=== PATIENT | female | born 1960 | race Caucasian/White ===

== ENCOUNTER 2017-05-03 21:56 | Inpatient (IN) | payer OTHER ==
[~2017-05-03] VITALS: Ht 162.6 cm; Wt 85.4 kg
[2017-05-03] MEDS ORDERED: SODIUM CHLORIDE 0.9% 1L BAG IV* STA (22:24)
[2017-05-03] MEDS ORDERED: ONDANSETRON 4 MG INJ IV STA (22:24)
[2017-05-03] MEDS ORDERED: ACETAMINOPHEN 325 MG TAB PO STA (22:24)
[2017-05-03] MEDS ORDERED: morphine 4 MG/ML VIAL IV STA (22:24)
[2017-05-03] MEDS ORDERED: ATOR10TA65 PO (23:19)
[2017-05-03] MEDS ORDERED: LOSA50TA6 PO (23:20)
[2017-05-03] MEDS ORDERED: METF500T4 PO (23:20)
[2017-05-03] MEDS ORDERED: METO-335 PO (23:20)
[2017-05-03] MEDS ORDERED: ALBU90AE INHALATION (23:21)
--- NOTE | 2017-05-03 23:22 | RADRPT ---
PROCEDURE: Right upper quadrant abdominal ultrasound. CLINICAL INDICATION: Abdominal pain TECHNIQUE: Gilbert scale and color doppler ultrasound images of the right upper quadrant of the abdom en. COMPARISON: None FINDINGS: Pancreas: Visualized portions appear of normal echogenicity without focal lesions. Liver: Morphology: The right lobe of the liver is elongated measuring up to 17.9 cm which may reflect Ried el's lobe configuration. Contour:Normal, no evidence of nodularity. Echogenicity: Mildly increased Focal lesions:None. Main portal vein: Patent with hepatopetal flow. Biliary System: Gallbladder wall: Mild gallbladder wall thickening appears to be due to contraction. Gallstones: None. Intrahepatic bile ducts: Normal caliber. Common bile duct diameter (mm): 4.3 Kidneys: Right length (cm) : 10.4 Right cortical thickness: Normal. Echogenicity: Normal. Hydronephrosis: None. Renal calculi: Possible 3 mm nonobstructive calculus of the right kidney. Focal lesions: None. Free fluid/ascites: None. Abdominal aorta: Not visualized by the border measurer and cutter. Other findings: None. IMPRESSION: Mild gallbladder wall thickening appears to be secondary to contraction. No gallstones are seen. Normal caliber intrahepatic and extrahepatic biliary system. Possible 3 mm nonobstructive calculus of the right kidney. Mildly increased echogenicity of the liver suggestive of hepatic steatosis. RPTAT: AADD .Tucker Alonzo MD, Date Time Electronically viewed and signed by .Tucker Alonzo MD, on 05/03/2017 23:22 .B/
--- NOTE | 2017-05-03 23:23 | RADRPT ---
PROCEDURE: CHEST - 1 VIEW CLINICAL INDICATION: 57-year-old female with shortness of breath and sepsis. TECHNIQUE: A single frontal AP upright portable view of the chest was performed. The images were reviewed on a PACS workstation. COMPARISON: None. FINDINGS: The cardiomediastinal silhouette is within normal limits. There is mild elevation right hemidiaphrag m. There is no evidence for an infiltrate. There is no evidence for congestive heart failure. Ther e is no evidence for pneumothorax. Degenerative changes are seen within the spine. IMPRESSION: No evidence for active cardiopulmonary disease. .Kai Macias MD, Date Time Electronically viewed and signed by .Kai Macias MD, on 05/03/2017 23:23 .M/
[2017-05-03 23:28] LABS: ABNORMAL IP MESSAGE 1; BASOPHILS % 0.1 % (0.0-2.0); HEMATOCRIT 37.2 % (37.0-47.0); HEMOGLOBIN 12.7 g/dl (12.0-16.0); LYMPHOCYTES # 0.3 10^3/ul (0.8-2.9); LYMPHOCYTES % 3.7 % (15.0-51.0); MEAN CORPUSCULAR HEMOGLOBIN 29.8 pg (29.0-33.0); MEAN CORPUSCULAR HGB CONC 34.1 g/dl (32.0-37.0); MEAN CORPUSCULAR VOLUME 87.3 fl (82.0-101.0); MONOCYTES % 0.4 % (0.0-11.0); NEUTROPHIL # 8.8 10^3/ul (1.6-7.5); PLATELET COUNT 174 10^3/UL (140-415); RED BLOOD COUNT 4.26 10^6/ul (4.20-5.40); WHITE BLOOD COUNT 9.3 10^3/ul (4.8-10.8)
[2017-05-03 23:47] LABS: POSITIVE DIFF @See below
[2017-05-04] VITALS (21 sets, daily range): BP systolic 75–107; BP diastolic 56–80; PULSE 81–94; RESP 21–31; TEMP 98.3; Ht 162.6 cm; Wt 85.4 kg
[2017-05-04 00:01] LABS: ALANINE AMINOTRANSFERASE 106 IU/L (13-69); ALBUMIN 3.4 g/dl (3.3-4.9); ALKALINE PHOSPHATASE 306 IU/L (42-121); ANION GAP 25 (8-16); ASPARTATE AMINO TRANSFERASE 110 IU/L (15-46); BILIRUBIN,INDIRECT 0.6 mg/dl (0-1.1); BILIRUBIN,TOTAL 0.7 mg/dl (0.2-1.3); BLOOD UREA NITROGEN 18 mg/dl (7-20); CALCIUM 8.7 mg/dl (8.4-10.2); CARBON DIOXIDE 21 mmol/L (21-31); CHLORIDE 88 mmol/L (97-110); CREATININE 1.44 mg/dl (0.44-1.00); GLUCOSE 325 mg/dl (70-220); POTASSIUM 5.1 mmol/L (3.5-5.1); SODIUM 129 mmol/L (135-144); TOTAL PROTEIN 6.8 g/dl (6.1-8.1)
[2017-05-04 00:12] LABS: TROPONIN-I < 0.012 ng/ml (0.00-0.12)
[2017-05-04 00:15] LABS: INR 1.24; PROTIME 15.7 Sec (12.2-14.2); PT RATIO 1.2
[2017-05-04 00:16] LABS: PARTIAL THROMBOPLASTIN TIME 34.2 Sec (25.0-35.0)
[2017-05-04] MEDS ORDERED: SOD CHLORIDE 0.9% 1,000 ML IV STA (00:23)
[2017-05-04] MEDS ORDERED: CEFEPIME 2GM/50 ML (PMX) 50 ML IVPB STA (00:23)
[2017-05-04] MEDS ORDERED: DEXAMETHASONE 10 MG/ML 1 ML INJ IV ONE (00:30)
[2017-05-04] MEDS ORDERED: VANCOMYCIN 1 GM (PMX) 250 ML IVPB ONE (00:30)
[2017-05-04 00:40] LABS: ADD UMIC YES; UR ASCORBIC ACID NEGATIVE (NEGATIVE); UR BILIRUBIN (Dip) NEGATIVE (NEGATIVE); UR BLOOD (Dip) 1+ mg/dL (NEGATIVE); UR CLARITY CLEAR (CLEAR); UR COLOR YELLOW (YELLOW); UR GLUCOSE (Dip) NEGATIVE (NEGATIVE); UR KETONES (Dip) NEGATIVE (NEGATIVE); UR LEUKOCYTE ESTERASE (Dip) NEGATIVE Leu/ul (NEGATIVE); UR NITRITE (Dip) NEGATIVE (NEGATIVE); UR RBC 2 /HPF (0-5); UR SPECIFIC GRAVITY (Dip) 1.011 (1.003-1.030); UR TOTAL PROTEIN (Dip) NEGATIVE (NEGATIVE); UR UROBILINOGEN (Dip) NEGATIVE (NEGATIVE)
[2017-05-04 01:28] LABS: EOSINOPHILS % (M) 1 % (0-7); PLATELET ESTIMATE NORMAL; POIKILOCYTOSIS 1+ (0-0); POLYCHROMASIA 3+ (0-0)
--- NOTE | 2017-05-04 02:54 | RADRPT ---
PROCEDURE: CT of the abdomen and pelvis without contrast CLINICAL INDICATION: Right flank and lower abdominal pain. TECHNIQUE: Spiral CT images through the abdomen and pelvis without the use of contrast. The admin istered radiation dose is CTDI 11.6 mGy and DLP 704.2 mGy*cm. Coronal and sagittal reformatted imag es were submitted. One or more of the following dose reduction techniques were used: automated expo sure control, adjustment of the mA and/or kV according to patient size, or use of iterative reconstr uction technique. DICOM images are available. COMPARISON: None FINDINGS: Lack of oral and intravenous contrast and motion artifact limits evaluation. There is mild basilar atelectasis. No pleural effusion is seen. The liver is enlarged with caudate lobe hypertrophy. The liver and spleen are normal in attenuation. The gallbladder is distended with small gallstones and marked gallbladder wall edema. Mild perichol ecystic stranding is seen. No biliary ductal dilatation is visualized. The adrenal glands and pancre as are unremarkable. The kidneys are normal in size and contour. There is no evidence of hydronephro sis or nephrolithiasis. The aorta is normal in caliber. There is a broad-based umbilical hernia. Th ere is no evidence for bowel obstruction, free air, or abscess. The appendix is normal in appearanc e. No adenopathy or ascites is seen. The uterus is anteverted with evidence of a 1.3 cm anterior fu ndal leiomyoma. The bladder is decompressed. There is abundant stool in the rectum. The osseous stru ctures are unremarkable. IMPRESSION: Findings suggesting acute cholecystitis. Hepatomegaly. Umbilical hernia. 1.3 cm fundal uterine leiomyoma. < RPTAT: HCNS Physician Kyle Date Time Electronically viewed and signed by Physician Kyle on 05/04/2017 02:53 CS/
[2017-05-04] MEDS ORDERED: EPINEPHrine 0.1 MG/ML SYG IV ONE (03:30)
--- NOTE | 2017-05-04 04:40 | ERD ---
ER Documentation Chief Complaint Chief Complaint Pt reports worsening pain r/t gallbladder HPI This is a 57-year-old female who comes in with complaints of right upper quadrant abdominal pain is getting progressively worse. Patient diagnosed with gallstones and biliary colic. Scheduled to have surgery this Tuesday. Pain got progressively worse over the past 2 days. She is also felt febrile and has had started having chills. Pain is mild to moderate intensity no exacerbating relieving factors. Found to have a temperature of 104 in triage. Code sepsis initiated. ROS All systems reviewed and are negative except as per history of present illness. Medications Home Meds Reported Medications Albuterol Sulfate (Proair Respiclick) 90 Mcg Aer.pow.ba, 2 PUFFS INHALATION Q6, #1 BOTTLE 05/03/17 Metoprolol Succinate* (Toprol XL*) 25 Mg Tab.sr.24h, 25 MG PO DAILY, #30 TAB 05/03/17 Losartan Potassium* (Losartan Potassium*) 50 Mg Tablet, 50 MG PO DAILY, TAB 05/03/17 Metformin Hcl* (Metformin Hcl*) 500 Mg Tablet, 500 MG PO WITH BREAKFAST, #30 TAB 05/03/17 Atorvastatin Calcium (Atorvastatin Calcium) 10 Mg Tablet, 10 MG PO QHS, #30 TAB 05/03/17 Allergies Allergies: Coded Allergies: No Known Allergy (Unverified , 05/03/17) PMhx/Soc History of Surgery: No Anesthesia Reaction: No Hx Neurological Disorder: No Hx Respiratory Disorders: No Hx Cardiac Disorders: Yes (HTN, DIABETES, ASTHMA) Hx Psychiatric Problems: No Hx Miscellaneous Medical Probl: No Hx Alcohol Use: No Hx Substance Use: No Hx Tobacco Use: No Smoking Status: Never smoker Physical Exam Vitals Vital Signs Date Time Temp Pulse Resp B/P Pulse Ox O2 Delivery O2 Flow Rate FiO2 05/04/17 01:19 99.3 115 20 78/43 96 Room Air 05/04/17 00:37 101.0 116 20 66/43 96 Room Air 05/04/17 00:07 101.4 124 20 65/45 96 Room Air 05/03/17 22:47 104.3 137 20 89/56 96 Room Air 05/03/17 22:47 Nasal Cannula 05/03/17 22:13 104.3 163 20 107/59 95 Physical Exam Const: [] Head: Atraumatic Eyes: Normal Conjunctiva ENT: Normal External Ears, Nose and Mouth. Neck: Full range of motion..~ No meningismus. Resp: Clear to auscultation bilaterally Cardio: Regular rate and rhythm, no murmurs Abd: Soft, non tender, non distended. Normal bowel sounds Skin: No petechiae or rashes Back: No midline or flank tenderness Ext: No cyanosis, or edema Neur: Awake and alert Psych: Normal Mood and Affect Result Diagram: 05/03/17224105/03/172241 Results 24 hrs Laboratory Tests Test 05/03/17 22:42 05/04/17 00:15 05/04/17 03:31 White Blood Count 9.310^3/ul Red Blood Count 4.2610^6/ul Hemoglobin 12.7g/dl Hematocrit 37.2% Mean Corpuscular Volume 87.3fl Mean Corpuscular Hemoglobin 29.8pg Mean Corpuscular Hemoglobin Concent 34.1g/dl Red Cell Distribution Width 13.0% Platelet Count 81857^3/UL Mean Platelet Volume 12.0fl Neutrophils % 95.0% Segmented Neutrophils % (Manual) 84% Band Neutrophils % (Manual) 12% Lymphocytes % 3.7% Lymphocytes % (Manual) 3% Monocytes % 0.4% Eosinophils % 0.0% Eosinophils % (Manual) 1% Basophils % 0.1% Nucleated Red Blood Cells % 0.0/100WBC Neutrophils # 8.810^3/ul Neutrophils # (Manual) 7.910^3/ul Band Neutrophils # 1.110^3/ul Absolute Lymphocytes (Manual) 0.210^3/ul Lymphocytes # 0.310^3/ul Monocytes # 0.010^3/ul Eosinophils # 0.010^3/ul Basophils # 0.010^3/ul Nucleated Red Blood Cells # 0.010^3/ul Platelet Estimate NORMAL Polychromasia 3+ Poikilocytosis 1+ Prothrombin Time 15.7Sec Prothrombin Time Ratio 1.2 INR International Normalized Ratio 1.24 Activated Partial Thromboplast Time 34.2Sec Sodium Level 129mmol/L Potassium Level 5.1mmol/L Chloride Level 88mmol/L Carbon Dioxide Level 21mmol/L Anion Gap 25 Blood Urea Nitrogen 18mg/dl Creatinine 1.44mg/dl Glucose Level 325mg/dl Lactic Acid Level 7.5mmol/L 4.4mmol/L Calcium Level 8.7mg/dl Total Bilirubin 0.7mg/dl Direct Bilirubin 0.10mg/dl Indirect Bilirubin 0.6mg/dl Aspartate Amino Transf (AST/SGOT) 110IU/L Alanine Aminotransferase (ALT/SGPT) 106IU/L Alkaline Phosphatase 306IU/L Troponin I < 0.012ng/ml Total Protein 6.8g/dl Albumin 3.4g/dl Globulin 3.40g/dl Albumin/Globulin Ratio 1.00 Lipase 221U/L Urine Color YELLOW Urine Clarity CLEAR Urine pH 6.0 Urine Specific [place] 1.011 Urine Ketones NEGATIVEmg/dL Urine Nitrite NEGATIVEmg/dL Urine Bilirubin NEGATIVEmg/dL Urine Urobilinogen NEGATIVEmg/dL Urine Leukocyte Esterase NEGATIVELeu/ul Urine Microscopic RBC 2/HPF Urine Microscopic WBC 4/HPF Urine Hemoglobin 1+mg/dL Urine Glucose NEGATIVEmg/dL Urine Total Protein NEGATIVEmg/dl Current Medications Medications (Trade) Dose Ordered Sig/Ember Route PRN Reason Start Time Stop Time Status Last Admin Dose Admin Sodium Chloride (NS) 2,570 ml BOLUS OVER 2 HOURS STAT IV* 05/03/17 22:24 05/03/17 22:26 DC 05/03/17 22:53 Acetaminophen (Tylenol Tab) 650 mg ONCE STAT PO 05/03/17 22:24 05/03/17 22:26 DC 05/03/17 22:53 Morphine Sulfate (morphine) 4 mg ONCE STAT IV 05/03/17 22:24 05/03/17 22:26 DC 05/03/17 22:53 Ondansetron HCl 4 mg 4 mg ONCE STAT IV 05/03/17 22:24 05/03/17 22:26 DC 05/03/17 22:53 Sodium Chloride (NS) 1,000 ml @ 1,000 mls/hr Q1H STAT IV 05/04/17 00:23 05/04/17 01:22 DC 05/04/17 00:38 Dexamethasone 10 mg 10 mg ONCE ONCE IV 05/04/17 00:30 05/04/17 00:31 DC 05/04/17 00:40 Cefepime HCl 50 ml @ 100 mls/hr ONCE STAT IVPB 05/04/17 00:23 05/04/17 00:52 DC 05/04/17 00:38 Vancomycin HCl (Vancocin) 250 ml @ 125 mls/hr ONCE ONCE IVPB 05/04/17 00:30 05/04/17 02:29 DC 05/04/17 00:53 Epinephrine 0.5 mg ONCE ONCE IV 05/04/17 03:30 05/04/17 03:31 DC 05/04/17 04:01 Procedures/MDM Patient's infectious symptoms have not stabilized and the patient is at risk of rapid decompensation. The patient will be admitted for careful hydration, antibiotic therapy, and infectious source control. Severe Sepsis Assessment: Infectious Source: Cholecystitis End organ damage indicated by: [Lactate > 2.0 mmol/L Hypotension( SBP < 90 or >40 mmHG drop or MAP < 65) Severe Sepsis Managment: Blood Cultures X 2 before broad spectrum antibiotics initiated within 3 hours of recognition. 30 ml/kg NS bolus Completed Initial Lactate: 7.5 Repeat Lactate pending Critical Care: Time: 45 minutes Treatments/Evaluations: Emergent fluid management, while maintaining close respiratory support. Immediate broad spectrum antibiotic therapy. Simultaneous assessment for possible sources in order to direct therapy. Consideration for invasive and chemical support to prevent respiratory or cardiac collapse. Septic Shock Assessment (1 hour post 30 ml/kg fluid bolus): Hypotension (SBP < 90 or 40 mmHg drop, MAP < 65): Yes Lactic acid > 4.0 yes Perfusion Reassessment for Septic Shock: Temp 100.6, Pulse 111, RR 18, BP 86/57 Heart Exam: [Tachycardic] Lung Exam: Mild crackles Capillary Refill: [Delayed] Peripheral Pulses: [Radially present] Skin: [Mottled, pale] Hypotensive Treatment (not required for isolated lactic acid elevation): Comfort Care: No Central LIne: I informed the patient the patient needs a central line secondary to septic shock, however the patient is declined at this time. Patient is alert and oriented 4 with goal oriented speech Vasopressor started: none I considered further perfusion assessment with CVP measurement, SCVO2, bedside ultrasound volume assessment, passive leg raise, trial of further fluid bolus. And preceded with repeat fluid boluses. Patient declines central line. She was given 25 mg of epinephrine for blood pressure support with good response. Accepting Care Team: Current data and ongoing care discussed. Time: 5 AM Primary Provider: Dr. Patricia Consulting: [[employer]] Outstanding Data: none EKG: Rate/Rhythm: Tachycardic rate, regular rhythm QRS, ST, T-waves: [No changes consistent w/ acute ischemia] Impression: Sinus tachycardia Chest X-ray 1V Interpreted by me: Soft Tissue: No acute abnormalities Bones: No acute abnormalities Mediastinum/Cardiac Silhouette/Lungs: [No acute abnormalities] Departure Diagnosis: Primary Impression: Septic shock Additional Impression: Cholecystitis Condition: Critical EMILY EASTMAN May 04, 2017 04:40
[2017-05-04] MEDS ORDERED: ONDANSETRON 4 MG INJ IV PRN (06:30)
[2017-05-04] MEDS ORDERED: ACETAMINOPHEN 650MG/20.3ML CUP PO PRN (06:30)
[2017-05-04] MEDS ORDERED: PANTOPRAZOLE 40 MG INJ IV SCH (06:30)
[2017-05-04] MEDS ORDERED: NORepinephrine 8MG/250 ML (PMX 250 ML ONE (06:56)
--- NOTE | 2017-05-04 09:51 | CONS ---
DATE OF ADMISSION: 05/03/2017 DATE OF CONSULTATION: 05/04/2017 GENERAL SURGERY CONSULTATION NOTE INDICATION: This is a 57-year-old female who had known symptomatic gallstones and was planned for s urgery on 05/06/2017. The patient presented to the ER with right upper quadrant pain that has been progressively getting worse and with fevers and chills. She had a temperature of 104. She was give n IV fluid resuscitation and required also pressors. She was found to have sepsis and is being admi tted to the ICU. PAST MEDICAL HISTORY: Hypertension, diabetes, asthma. PHYSICAL EXAMINATION: VITAL SIGNS: Temperature 98.7, pulse is 102, blood pressure is 77/60, respiratory rate is 20. GENERAL: Well-nourished female, slightly obese. ABDOMEN: Focal right upper quadrant tenderness. No peritoneal signs, no rebound tenderness. LABORATORIES: White blood cell count is 9.3, hemoglobin 12.7, platelets 174. Chemistries: Sodium is 129, potassium is 5.1, chloride 88, carbon dioxide 21, BUN is 18, creatinine is 1.4, glucose is 3 22, lactic acid 4.1, total bilirubin is 0.7, indirect bilirubin is 0.6, AST is 110, ALT is 106, cayetano line phosphatase 306. Lipase is 221. Gallbladder ultrasound shows mild gallbladder wall thickening secondary to infection. No gallstones seen. Normal caliber intrahepatic and extrahepatic biliary system. CT scan shows acute cholecystitis, umbilical hernia, hepatomegaly, fundal uterine leiomyoma . ASSESSMENT AND PLAN: This is a 57-year-old female with episode of hypotension with suspected focus of the gallbladder. She is on pressors and is in septic shock. We will need to order a percutaneou s cholecystostomy for drainage in the acute setting as the patient is hypotensive. General surgery will continue to follow. Dictated By: BOBBY ISBELL/NIKA Conf#: [id number] DID#: [id number]
--- NOTE | 2017-05-04 09:54 | HP ---
Date/Time of Note Date/Time of Note DATE: 05/04/17 TIME: 09:47 Assessment/Plan VTE Prophylaxis VTE Prophylaxis Intervention: SCD's Lines/Catheters Urinary Cath still in place: Yes Reason Cath still needed: other (indicate) (septic shock) Assessment/Plan Assessment/Plan 57 yo F with 1. Septic Shock 2/2 #2 2. Acute gallstone cholecystitis, r/o cholangitis 3. Fatty liver + Transaminitis (Acute) 4. HTN > Shock 5. DM 2 : suboptimal control 6. Hx of HLD 7. Acute renal insufficiency r/o CKD likely 2/2 #1 PLAN: ICU admit / Pressor support / stat Gen surg consult - planned for percutaneous cholecystostomy/ Empiric broad spectrum abx therapy IV Hydration / Serial Labs/ SSI / NPO Aggressive ICU supportive care. Prophylaxis:SCDS / Pepcid HPI/ROS Admit Date/Time Admit Date/Time 05/04/17 Hx of Present Illness PRESENTING COMPLAINT: fever and chills x 5 days HISTORY OF PRESENTING COMPLAINT:This is pleasant 57 yo F with PMH of HTN and DM known cholelithiasis and possible chronic cholecystitis which was scheduled for laparoscopic cholecystectomy in 2 days but developed fever and chills about 5 days ago. The patient has slowly gotten sicker and sicker over the last 5 days and by last night she had become so weak with occasional episodes of vomiting, loss of appetite and severe lethargy that she had to come to the emergency room to be evaluated at the recommendation of her doctors. Upon arrival in the emergency room she was found to be in septic shock and the source was thought to be from her cholecystitis. She is being admitted for further workup and management to the intensive care unit. ROS 12 point review if systems was done and pertinent findings are as noted. Constitutional: febrile, nausea, poor po Gastrointestinal: nausea, pain, vomiting PMH/Family/Social Past Medical History * HTN * DM * HLD * ASthma Social History Alcohol Use: none Smoking Status: Never smoker Drug Use: none Exam/Review of Systems Vital Signs Vitals VS - Last 72 Hours, by Label Date Time Temp Pulse Resp B/P Pulse Ox O2 Delivery O2 Flow Rate FiO2 05/04/17 09:15 94 20 101/70 97 Room Air 05/04/17 09:00 96 23 96/70 97 Room Air 05/04/17 08:45 96 22 103/80 96 Room Air 05/04/17 08:30 98.0 93 23 90/73 95 Room Air 05/04/17 08:03 100 20 88/51 98 Room Air 05/04/17 06:05 98.7 102 20 77/60 100 Nasal Cannula 05/04/17 05:42 98.7 108 20 74/45 100 Nasal Cannula 05/04/17 04:40 98.7 115 20 73/59 100 Nasal Cannula 05/04/17 02:30 99.3 113 20 79/45 100 Nasal Cannula 05/04/17 01:19 99.3 115 20 78/43 96 Room Air 05/04/17 00:37 101.0 116 20 66/43 96 Room Air 05/04/17 00:07 101.4 124 20 65/45 96 Room Air 05/03/17 22:47 104.3 137 20 89/56 96 Room Air 05/03/17 22:47 Nasal Cannula 05/03/17 22:13 104.3 163 20 107/59 95 Vital Signs Date Time Temp Pulse Resp B/P Pulse Ox O2 Delivery O2 Flow Rate FiO2 05/04/17 09:15 94 20 101/70 97 Room Air 05/04/17 08:30 98.0 Exam Constitutional: alert, other (acutely ill looking) Psych: anxiety Head: atraumatic, normocephalic ENMT: No mucosa pink and moist (dry) Neck: supple Respiratory: clear to auscultation, diminished breath sounds Cardiovascular: other (mild tachycardia, hypotension), regular rate and rhythm Gastrointestinal: bowel sounds, soft, tender (RUQ and epigastrium) Extremities: No edema Neurological: lethargic Labs Result Diagram: 05/03/17224105/03/172241 Medications Medications Current Medications Ondansetron HCl (Zofran Inj) 4 mg Q6H PRN IV NAUSEA AND/OR VOMITING; Start at 06:30 Acetaminophen (Tylenol Liquid) 650 mg Q6H PRN PO PAIN LEVEL 1-3 OR FEVER; Start 05/04/17 at 06:30 Pantoprazole 40 mg 40 mg DAILY@06 IV ; Start 05/04/17 at 06:30 Norepinephrine 16 mg/Dextrose 500 ml @ 1.87 mls/hr TITRATE IV Last administered on 05/04/17t 08:16; Admin Dose 9.37 MLS/HR; Start 05/04/17 at 06: 45 Piperacillin Sod/ Tazobactam Sod (Zosyn 3.375gm/ 50 ml (Pmx)) 50 ml @ 100 mls/ hr Q6 IVPB ; Start 05/04/17 at 06:30 Procedures Procedures Laboratory Tests Test 05/03/17 22:42 05/04/17 00:15 05/04/17 03:31 05/04/17 05:20 White Blood Count 9.310^3/ul Red Blood Count 4.2610^6/ul Hemoglobin 12.7g/dl Hematocrit 37.2% Mean Corpuscular Volume 87.3fl Mean Corpuscular Hemoglobin 29.8pg Mean Corpuscular Hemoglobin Concent 34.1g/dl Red Cell Distribution Width 13.0% Platelet Count 16011^3/UL Mean Platelet Volume 12.0fl Neutrophils % 95.0% Segmented Neutrophils % (Manual) 84% Band Neutrophils % (Manual) 12% Lymphocytes % 3.7% Lymphocytes % (Manual) 3% Monocytes % 0.4% Eosinophils % 0.0% Eosinophils % (Manual) 1% Basophils % 0.1% Nucleated Red Blood Cells % 0.0/100WBC Neutrophils # 8.810^3/ul Neutrophils # (Manual) 7.910^3/ul Band Neutrophils # 1.110^3/ul Absolute Lymphocytes (Manual) 0.210^3/ul Lymphocytes # 0.310^3/ul Monocytes # 0.010^3/ul Eosinophils # 0.010^3/ul Basophils # 0.010^3/ul Nucleated Red Blood Cells # 0.010^3/ul Platelet Estimate NORMAL Polychromasia 3+ Poikilocytosis 1+ Prothrombin Time 15.7Sec Prothrombin Time Ratio 1.2 INR International Normalized Ratio 1.24 Activated Partial Thromboplast Time 34.2Sec Sodium Level 129mmol/L Potassium Level 5.1mmol/L Chloride Level 88mmol/L Carbon Dioxide Level 21mmol/L Anion Gap 25 Blood Urea Nitrogen 18mg/dl Creatinine 1.44mg/dl Glucose Level 325mg/dl Lactic Acid Level 7.5mmol/L 4.4mmol/L 4.1mmol/L Calcium Level 8.7mg/dl Total Bilirubin 0.7mg/dl Direct Bilirubin 0.10mg/dl Indirect Bilirubin 0.6mg/dl Aspartate Amino Transf (AST/SGOT) 110IU/L Alanine Aminotransferase (ALT/SGPT) 106IU/L Alkaline Phosphatase 306IU/L Troponin I < 0.012ng/ml Total Protein 6.8g/dl Albumin 3.4g/dl Globulin 3.40g/dl Albumin/Globulin Ratio 1.00 Lipase 221U/L Urine Color YELLOW Urine Clarity CLEAR Urine pH 6.0 Urine Specific [place] 1.011 Urine Ketones NEGATIVEmg/dL Urine Nitrite NEGATIVEmg/dL Urine Bilirubin NEGATIVEmg/dL Urine Urobilinogen NEGATIVEmg/dL Urine Leukocyte Esterase NEGATIVELeu/ul Urine Microscopic RBC 2/HPF Urine Microscopic WBC 4/HPF Urine Hemoglobin 1+mg/dL Urine Glucose NEGATIVEmg/dL Urine Total Protein NEGATIVEmg/dl PROCEDURE: CT of the abdomen and pelvis without contrast CLINICAL INDICATION: Right flank and lower abdominal pain. TECHNIQUE: Spiral CT images through the abdomen and pelvis without the use of contrast. The administered radiation dose is CTDI 11.6 mGy and DLP 704.2 mGy* cm. Coronal and sagittal reformatted images were submitted. One or more of the following dose reduction techniques were used: automated exposure control, adjustment of the mA and/or kV according to patient size, or use of iterative reconstruction technique. DICOM images are available. COMPARISON: None FINDINGS: Lack of oral and intravenous contrast and motion artifact limits evaluation. There is mild basilar atelectasis. No pleural effusion is seen. The liver is enlarged with caudate lobe hypertrophy. The liver and spleen are normal in attenuation. The gallbladder is distended with small gallstones and marked gallbladder wall edema. Mild pericholecystic stranding is seen. No biliary ductal dilatation is visualized. The adrenal glands and pancreas are unremarkable. The kidneys are normal in size and contour. There is no evidence of hydronephrosis or nephrolithiasis. The aorta is normal in caliber. There is a broad-based umbilical hernia. There is no evidence for bowel obstruction, free air, or abscess. The appendix is normal in appearance. No adenopathy or ascites is seen. The uterus is anteverted with evidence of a 1.3 cm anterior fundal leiomyoma. The bladder is decompressed. There is abundant stool in the rectum. The osseous structures are unremarkable. IMPRESSION: Findings suggesting acute cholecystitis. Hepatomegaly. Umbilical hernia. 1.3 cm fundal uterine leiomyoma. < RPTAT: HCNS Physician Kyle Date Time Electronically viewed and signed by Physician Kyle on 05/04/2017 02: 53 CS/ CC: EMILY EASTMAN PROCEDURE: CHEST - 1 VIEW CLINICAL INDICATION: 57-year-old female with shortness of breath and sepsis. TECHNIQUE: A single frontal AP upright portable view of the chest was performed. The images were reviewed on a PACS workstation. COMPARISON: None. FINDINGS: The cardiomediastinal silhouette is within normal limits. There is mild elevation right hemidiaphragm. There is no evidence for an infiltrate. There is no evidence for congestive heart failure. There is no evidence for pneumothorax. Degenerative changes are seen within the spine. IMPRESSION: No evidence for active cardiopulmonary disease. .Kai Macias MD, MD Date Time Electronically viewed and signed by .Kai Macias MD, MD on 05/03/2017 23:23 .M/ CC: EMILY EASTMAN PROCEDURE: Right upper quadrant abdominal ultrasound. CLINICAL INDICATION: Abdominal pain TECHNIQUE: Gilbert scale and color doppler ultrasound images of the right upper quadrant of the abdomen. COMPARISON: None FINDINGS: Pancreas: Visualized portions appear of normal echogenicity without focal lesions. Liver: Morphology: The right lobe of the liver is elongated measuring up to 17.9 cm which may reflect Emeterio's lobe configuration. Contour:Normal, no evidence of nodularity. Echogenicity: Mildly increased Focal lesions:None. Main portal vein: Patent with hepatopetal flow. Biliary System: Gallbladder wall: Mild gallbladder wall thickening appears to be due to contraction. Gallstones: None. Intrahepatic bile ducts: Normal caliber. Common bile duct diameter (mm): 4.3 Kidneys: Right length (cm) : 10.4 Right cortical thickness: Normal. Echogenicity: Normal. Hydronephrosis: None. Renal calculi: Possible 3 mm nonobstructive calculus of the right kidney. Focal lesions: None. Free fluid/ascites: None. Abdominal aorta: Not visualized by the bow making machine operator. Other findings: None. IMPRESSION: Mild gallbladder wall thickening appears to be secondary to contraction. No gallstones are seen. Normal caliber intrahepatic and extrahepatic biliary system. Possible 3 mm nonobstructive calculus of the right kidney. Mildly increased echogenicity of the liver suggestive of hepatic steatosis. RPTAT: AADD .Emily Alonzo MD, MD Date Time Electronically viewed and signed by .Emily Alonzo MD, MD on 05/03/2017 23:22 .B/ CC: EMILY EASTMAN BOLATITO M. May 04, 2017 09:54
[2017-05-04] MEDS ORDERED: GLUCAGON 1 MG INJ IM PRN (10:30)
[2017-05-04] MEDS ORDERED: GLUCOSE GEL 15 GRAM TUBE PO PRN ×2 (10:30)
[2017-05-04] MEDS ORDERED: DEXTROSE 50% 50 ML SYRINGE IV PRN ×2 (10:30)
[2017-05-04] MEDS ORDERED: GLUCOSE GEL 15 GRAM TUBE BUCCAL PRN (10:30)
[2017-05-04] MEDS ORDERED: PANTOPRAZOLE 40 MG INJ ONE (10:41)
[2017-05-04] MEDS: PIPER-TAZO 3.375 GM IV (PMX) 50 ML IVPB SCH ×3 (10:45→17:22)
[2017-05-04] MEDS: SOD CHLORIDE 0.9% 1,000 ML IV SCH ×3 (10:50→21:43)
--- NOTE | 2017-05-04 12:27 | RADRPT ---
PROCEDURE: XR Chest. CLINICAL INDICATION: PICC line placement TECHNIQUE: Single frontal view of the chest was obtained COMPARISON: Yesterday FINDINGS: There is a new left-sided PICC line in place with its tip overlying the mid right atrium. There is mild cardiomegaly. There is new mild right perihilar infiltrate. There is no pleural effusi on or pneumothorax. RPTAT: AA IMPRESSION: New PICC line in appropriate position. New mild right perihilar infiltrate. .Jani Duran MD, MD Date Time Electronically viewed and signed by .Jnai Duran MD, MD on 05/04/2017 12:27 .S/
[2017-05-04] MEDS: INSULIN ASPART [NOVOLOG] 3 ML PEN SC SCH ×3 (13:00→20:13)
[2017-05-04 13:08] LABS: INR 1.47; PROTIME 17.9 Sec (12.2-14.2); PT RATIO 1.4
[2017-05-04 13:09] LABS: PARTIAL THROMBOPLASTIN TIME 40.1 Sec (25.0-35.0)
[2017-05-04 13:23] LABS: CK-MB 3.26 ng/ml (0.0-2.4)
[2017-05-04 13:24] LABS: TROPONIN-I 1.03 ng/ml (0.00-0.12)
[2017-05-04 13:45] LABS: ALBUMIN 2.6 g/dl (3.3-4.9); BILIRUBIN,DIRECT 0.1 mg/dl (0.00-0.20); BILIRUBIN,INDIRECT 0.4 mg/dl (0-1.1); BILIRUBIN,TOTAL 0.5 mg/dl (0.2-1.3); MAGNESIUM 1.8 mg/dl (1.7-2.5); TOTAL PROTEIN 5.8 g/dl (6.1-8.1)
[2017-05-04] MEDS: FAMOTIDINE 20 MG INJ IV SCH (20:09)
[2017-05-05] VITALS (27 sets, daily range): BP systolic 74–126; BP diastolic 61–93; PULSE 71–98; RESP 16–30
[2017-05-05] MEDS: PIPER-TAZO 3.375 GM IV (PMX) 50 ML IVPB SCH ×4 (00:21→17:04)
[2017-05-05] MEDS: INSULIN ASPART [NOVOLOG] 3 ML PEN SC SCH ×6 (00:33→21:00)
[2017-05-05] MEDS: ACCU-CHEK XX SCH (01:09)
[2017-05-05 05:18] LABS: ABNORMAL IP MESSAGE 1; HEMATOCRIT 29.6 % (37.0-47.0); HEMOGLOBIN 9.9 g/dl (12.0-16.0); MEAN CORPUSCULAR HEMOGLOBIN 29.6 pg (29.0-33.0); MEAN CORPUSCULAR HGB CONC 33.4 g/dl (32.0-37.0); MEAN CORPUSCULAR VOLUME 88.6 fl (82.0-101.0); MEAN PLATELET VOLUME 12.4 fl (7.4-10.4); PLATELET COUNT 180 10^3/UL (140-415); RED BLOOD COUNT 3.34 10^6/ul (4.20-5.40); WHITE BLOOD COUNT 35.7 10^3/ul (4.8-10.8)
[2017-05-05 05:45] LABS: CALCIUM 7.8 mg/dl (8.4-10.2); CHOL/HDL RATIO 6.4 RATIO; CREATININE 0.98 mg/dl (0.44-1.00); POTASSIUM 4.5 mmol/L (3.5-5.1)
[2017-05-05 05:46] LABS: POSITIVE DIFF @See below
[2017-05-05] MEDS: SOD CHLORIDE 0.9% 1,000 ML IV SCH ×2 (06:22→17:04)
[2017-05-05] MEDS: FAMOTIDINE 20 MG INJ IV SCH ×2 (08:45→20:28)
[2017-05-05 09:16] LABS: ANISOCYTOSIS 1+ (0-0); BURR CELLS 2+ (0-0); EOSINOPHILS % (M) 1 % (0-7); HYPOCHROMASIA 1+ (0-0); METAMYELOCYTES %M 6 % (0-0); MONOCYTES % (M) 2 % (0-11); PLATELET ESTIMATE NORMAL; POIKILOCYTOSIS 1+ (0-0)
--- NOTE | 2017-05-05 09:41 | PN ---
Date/Time of Note Date/Time of Note DATE: 05/05/17 TIME: 09:41 Assessment/Plan VTE Prophylaxis VTE Prophylaxis Intervention: SCD's Lines/Catheters [facility] P[facility] Line Central line still needed: Yes Urinary Cath still in place: No Assessment/Plan Assessment/Plan 1. Septic shock secondary to acute cholecystitis- improving - Patient no longer requiring pressor support and BP stable - WBC is elevated at 35K today but remains afebrile - Lactic acid normalized following fluid resuscitation and IV antibiotics - Spoke with IR and Dr. Mari plans to do percutaneous cholecystostomy if INR at least 1.2. Appreciate assistance with care of patient - Surgery on board and consultation appreciated. Spoke with Dr. Ibrahim this am and plans for drain and will proceed with elective lap julissa once acute infection resolves 2. Bacteremia - Blood cultures growing gram negative rods - Currently Zosyn day 2 - ID consultation appreciated and will await further recommendations on antibiotic management 3. Hypotension - Resolved. no longer requiring pressor support 4. Diabetes Mellitus, well controlled - A1c 6.2 - Will continue on ISS and accuchecks - Hold home Metformin 5. Acute cholecystitis - Patient was supposed to have gallbladder removed in 2 days but presented to ED with sepsis - Surgery on board - LFTs elevated and will continue to trend 6. h/o asthma - neb treatment as needed 7. JAKY - resolved with fluid 8. Disposition - okay for transfer to Telemetry >45 minutes of critical care time was spent with patient and family at bedside. Subjective 24 Hr Interval Summary Free Text/Dictation Patient nervous about procedure this am and plan of care discussed with as well as daughter at bedside. Patient had an episode of respiratory distress this am which improved after breathing treatment and CXR showed no acute abnormalities. No overnight events. Exam/Review of Systems Vital Signs Vitals Vital Signs Date Time Temp Pulse Resp B/P Pulse Ox O2 Delivery O2 Flow Rate FiO2 05/05/17 08:00 97.6 74 23 119/85 99 Nasal Cannula 2.0 Intake and Output 05/04/17 05/04/17 05/05/17 15:00 23:00 07:00 Intake Total 3870 ml 1050 ml 1100 ml Output Total 160 ml 475 ml 360 ml Balance 3710 ml 575 ml 740 ml Exam General: nervous but no acute distress, awake and alert HEENT: PERRL, EOMI, neck supple CVS: S1, S2, RRR, no murmurs or extra sounds Lungs: CTA b/l, no wheezing or rhonchi GI: soft, RUQ tenderness, nondistended, no rebound or guarding Ext: moving all extremities, no edema, cyanosis, or clubbing Skin: no new rashes Results Result Diagram: 05/05/17 0400 05/05/17 0400 Results 24 hrs Laboratory Tests Test 05/04/17 12:30 05/04/17 15:05 05/04/17 17:19 05/04/17 20:08 Prothrombin Time 17.9 H Prothrombin Time Ratio 1.4 INR International Normalized Ratio 1.47 Activated Partial Thromboplast Time 40.1 H Hemoglobin A1c 6.2 H Lactic Acid Level 1.9 Magnesium Level 1.8 Total Bilirubin 0.5 Direct Bilirubin 0.10 Indirect Bilirubin 0.4 Aspartate Amino Transf (AST/SGOT) 127 H Alanine Aminotransferase (ALT/SGPT) 169 H Alkaline Phosphatase 176 H Creatine Kinase 103 Creatine Kinase Index 3.2 Creatinine Kinase MB (Mass) 3.26 H Troponin I 1.030 *H Total Protein 5.8 #L Albumin 2.6 L Bedside Glucose 275 H 240 H 213 Test 05/05/17 00:26 05/05/17 04:00 05/05/17 05:01 05/05/17 08:31 Bedside Glucose 190 185 196 White Blood Count 35.7 #H Red Blood Count 3.34 #L Hemoglobin 9.9 #L Hematocrit 29.6 #L Mean Corpuscular Volume 88.6 Mean Corpuscular Hemoglobin 29.6 Mean Corpuscular Hemoglobin Concent 33.4 Red Cell Distribution Width 14.0 Platelet Count 180 Mean Platelet Volume 12.4 H Neutrophils % Segmented Neutrophils % (Manual) 55 Band Neutrophils % (Manual) 33 H Lymphocytes % Lymphocytes % (Manual) 3 L Monocytes % Monocytes % (Manual) 2 Eosinophils % Eosinophils % (Manual) 1 Basophils % Metamyelocytes % (manual) 6 H Nucleated Red Blood Cells % 0.0 Neutrophils # Neutrophils # (Manual) 23.8 H Band Neutrophils # 11.7 H Absolute Lymphocytes (Manual) 1.0 Lymphocytes # Monocytes # Absolute Monocytes (Manual) 0.7 Eosinophils # Basophils # Metamyelocytes # 2.1 H Nucleated Red Blood Cells # Platelet Estimate NORMAL Hypochromasia 1+ Poikilocytosis 1+ Anisocytosis 1+ Sodium Level 141 Potassium Level 4.5 Chloride Level 107 # Carbon Dioxide Level 22 Anion Gap 17 #H Blood Urea Nitrogen 21 H Creatinine 0.98 Glucose Level 201 # Calcium Level 7.8 L Triglycerides Level 263 H Cholesterol Level 109 LDL Cholesterol, Calculated 39 HDL Cholesterol 17 L Cholesterol/HDL Ratio 6.4 Medications Medications Current Medications Ondansetron HCl (Zofran Inj) 4 mg Q6H PRN IV NAUSEA AND/OR VOMITING; Start at 06:30 Acetaminophen 650 mg 650 mg Q6H PRN PO PAIN LEVEL 1-3 OR FEVER; Start at 06:30 Norepinephrine 16 mg/Dextrose 500 ml @ 1.87 mls/hr TITRATE IV Last administered on 05/04/17 08:16; Admin Dose 9.37 MLS/HR; Start 05/04/17 at 06: 45 Piperacillin Sod/ Tazobactam Sod 50 ml @ 100 mls/hr Q6 IVPB Last administered on 05/05/17 05:01; Admin Dose 100 MLS/HR; Start 05/04/17 at 06:30 Sodium Chloride (NS) 1,000 ml @ 125 mls/hr Q8H IV Last administered on 06:22; Admin Dose 125 MLS/HR; Start 05/04/17 at 10:00 Famotidine (Pepcid Iv) 20 mg BID IV Last administered on 05/05/17 08:45; Admin Dose 20 MG; Start 05/04/17 at 21:00 Diagnostic Test (Pha) (Accu-Chek) 1 ea 02 XX ; Start 05/05/17 at 02:00 Insulin Aspart (Novolog Insulin Pen) NOVOLOG *MILD* ALGORI... Q4 SC Last administered on 05/05/17 08:37; Admin Dose 2 UNIT; Start 05/04/17 at 13:00 Miscellaneous Information 1 ea NOTE XX ; Start 05/04/17 at 10:30 Glucose (Glutose) 15 gm Q15M PRN PO DECREASED GLUCOSE; Start 05/04/17 at 10:30 Glucose (Glutose) 22.5 gm Q15M PRN PO DECREASED GLUCOSE; Start 05/04/17 at 10: 30 Dextrose (D50w Syringe) 25 ml Q15M PRN IV DECREASED GLUCOSE; Start 05/04/17 at 10:30 Dextrose (D50w Syringe) 50 ml Q15M PRN IV DECREASED GLUCOSE; Start 05/04/17 at 10:30 Glucagon (Glucagen) 1 mg Q15M PRN IM DECREASED GLUCOSE; Start 05/04/17 at 10: 30 Glucose (Glutose) 15 gm Q15M PRN BUCCAL DECREASED GLUCOSE; Start 05/04/17 at 10:30 TIM GARCIA MD May 05, 2017 09:41
--- NOTE | 2017-05-05 10:44 | PN ---
Date/Time of Note Date/Time of Note DATE: 05/05/17 TIME: 10:43 Assessment/Plan VTE Prophylaxis VTE Prophylaxis Intervention: SCD's Lines/Catheters IV Catheter Type (from Nrs): PICC Line Central line still needed: Yes Urinary Cath still in place: Yes Reason Cath still needed: other (indicate) Assessment/Plan Chief Complaint/Hosp Course acute cholecystitis with episodes of hypotension requiring pressors on iv abx Problems: Assessment/Plan rec iv abx and per cholecystostomy in acute setting and will continue to follow Subjective 24 Hr Interval Summary Free Text/Dictation patient in the ICU Exam/Review of Systems Vital Signs Vitals Vital Signs Date Time Temp Pulse Resp B/P Pulse Ox O2 Delivery O2 Flow Rate FiO2 05/05/17 08:00 97.6 74 23 119/85 99 Nasal Cannula 2.0 Intake and Output 05/04/17 05/04/17 05/05/17 14:59 22:59 06:59 Intake Total 3745 ml 1050 ml 1100 ml Output Total 60 ml 525 ml 410 ml Balance 3685 ml 525 ml 690 ml Exam ruq focal tenderness Results Result Diagram: 05/05/17 0400 05/05/17 0400 Results 24 hrs Laboratory Tests Test 05/04/17 12:30 05/04/17 15:05 05/04/17 17:19 05/04/17 20:08 Prothrombin Time 17.9 H Prothrombin Time Ratio 1.4 INR International Normalized Ratio 1.47 Activated Partial Thromboplast Time 40.1 H Hemoglobin A1c 6.2 H Lactic Acid Level 1.9 Magnesium Level 1.8 Total Bilirubin 0.5 Direct Bilirubin 0.10 Indirect Bilirubin 0.4 Aspartate Amino Transf (AST/SGOT) 127 H Alanine Aminotransferase (ALT/SGPT) 169 H Alkaline Phosphatase 176 H Creatine Kinase 103 Creatine Kinase Index 3.2 Creatinine Kinase MB (Mass) 3.26 H Troponin I 1.030 *H Total Protein 5.8 #L Albumin 2.6 L Bedside Glucose 275 H 240 H 213 Test 05/05/17 00:26 05/05/17 04:00 05/05/17 05:01 05/05/17 08:31 Bedside Glucose 190 185 196 White Blood Count 35.7 #H Red Blood Count 3.34 #L Hemoglobin 9.9 #L Hematocrit 29.6 #L Mean Corpuscular Volume 88.6 Mean Corpuscular Hemoglobin 29.6 Mean Corpuscular Hemoglobin Concent 33.4 Red Cell Distribution Width 14.0 Platelet Count 180 Mean Platelet Volume 12.4 H Neutrophils % Segmented Neutrophils % (Manual) 55 Band Neutrophils % (Manual) 33 H Lymphocytes % Lymphocytes % (Manual) 3 L Monocytes % Monocytes % (Manual) 2 Eosinophils % Eosinophils % (Manual) 1 Basophils % Metamyelocytes % (manual) 6 H Nucleated Red Blood Cells % 0.0 Neutrophils # Neutrophils # (Manual) 23.8 H Band Neutrophils # 11.7 H Absolute Lymphocytes (Manual) 1.0 Lymphocytes # Monocytes # Absolute Monocytes (Manual) 0.7 Eosinophils # Basophils # Metamyelocytes # 2.1 H Nucleated Red Blood Cells # Platelet Estimate NORMAL Hypochromasia 1+ Poikilocytosis 1+ Anisocytosis 1+ Sodium Level 141 Potassium Level 4.5 Chloride Level 107 # Carbon Dioxide Level 22 Anion Gap 17 #H Blood Urea Nitrogen 21 H Creatinine 0.98 Glucose Level 201 # Calcium Level 7.8 L Triglycerides Level 263 H Cholesterol Level 109 LDL Cholesterol, Calculated 39 HDL Cholesterol 17 L Cholesterol/HDL Ratio 6.4 Medications Medications Current Medications Ondansetron HCl (Zofran Inj) 4 mg Q6H PRN IV NAUSEA AND/OR VOMITING; Start at 06:30 Acetaminophen 650 mg 650 mg Q6H PRN PO PAIN LEVEL 1-3 OR FEVER; Start at 06:30 Piperacillin Sod/ Tazobactam Sod 50 ml @ 100 mls/hr Q6 IVPB Last administered on 05/05/17 05:01; Admin Dose 100 MLS/HR; Start 05/04/17 at 06:30 Sodium Chloride (NS) 1,000 ml @ 125 mls/hr Q8H IV Last administered on 06:22; Admin Dose 125 MLS/HR; Start 05/04/17 at 10:00 Famotidine (Pepcid Iv) 20 mg BID IV Last administered on 05/05/17 08:45; Admin Dose 20 MG; Start 05/04/17 at 21:00 Diagnostic Test (Pha) (Accu-Chek) 1 ea 02 XX ; Start 05/05/17 at 02:00 Insulin Aspart (Novolog Insulin Pen) NOVOLOG *MILD* ALGORI... Q4 SC Last administered on 11/30/17at 08:37; Admin Dose 2 UNIT; Start 05/04/17 at 13:00 Miscellaneous Information 1 ea NOTE XX ; Start 05/04/17 at 10:30 Glucose (Glutose) 15 gm Q15M PRN PO DECREASED GLUCOSE; Start 05/04/17 at 10:30 Glucose (Glutose) 22.5 gm Q15M PRN PO DECREASED GLUCOSE; Start 05/04/17 at 10: 30 Dextrose (D50w Syringe) 25 ml Q15M PRN IV DECREASED GLUCOSE; Start 05/04/17 at 10:30 Dextrose (D50w Syringe) 50 ml Q15M PRN IV DECREASED GLUCOSE; Start 05/04/17 at 10:30 Glucagon (Glucagen) 1 mg Q15M PRN IM DECREASED GLUCOSE; Start 05/04/17 at 10: 30 Glucose (Glutose) 15 gm Q15M PRN BUCCAL DECREASED GLUCOSE; Start 05/04/17 at 10:30 Harvey RESTREPO May 05, 2017 10:44
[2017-05-05] MEDS ORDERED: ALBUTEROL 0.083% (NEB) 2.5 MG/3 ML AMP HHN ONE (11:00)
--- NOTE | 2017-05-05 12:11 | CONS ---
DATE OF ADMISSION: 05/04/2017 DATE OF CONSULTATION: 05/05/2017 TYPE OF CONSULTATION: Infectious Disease. REASON FOR CONSULTATION: Antibiotic management. HISTORY OF PRESENT ILLNESS: Tone Velasquez is a 57-year-old female with a number of problems who comes in with what appears to be septic shock and is being seen for antibiotic management. Her past problems include: 1. Hypertension. 2. Diabetes mellitus. 3. Hyperlipidemia. 4. Asthma. 5. Cholelithiasis. The patient presents with possible chronic cholecystitis which was scheduled fo r laparoscopic cholecystectomy in 2 days. She developed fever and chills about 5 days ago and has g maksim sicker over the last 5 days. The night prior to admission, she became so weak with episodes o f nausea and vomiting, loss of appetite and lethargy, that she came to the emergency room to be eval uated. She was found to be in septic shock, thought to be secondary to cholecystitis and was admitt ed. On admission, her white count was 9.3, H and H 12.7 and 37.2, platelet count 174,000. BUN and creat inine 18/1.44. Random blood sugar is 325. Sodium 129. She had blood cultures positive for gram-ne gative rods and she was seen by Dr. Ibrahim who felt suspected focus of the gallbladder. He suggested o rdering a percutaneous cholecystostomy with drainage in the acute setting as she is hypotensive. On the , her white count was 35.7. BUN and creatinine 21/0.98. HOSPITAL COURSE: Patient was on pressors with norepinephrine as well as Zosyn. Today, she has a PI CC line in place for urinary retention. She has a Caro catheter. She has acute cholecystitis with episodes of hypotension. RECOMMENDATION: Cholecystostomy in acute setting. PAST MEDICAL HISTORY: Operations as outlined. FAMILY HISTORY: Noncontributory. SOCIAL HISTORY: She does not smoke, drink or abuse drugs. ALLERGIES: NONE TO PENICILLIN, SULFA OR FOODS. MEDICATIONS: Per chart. REVIEW OF SYSTEMS: As per HPI. PHYSICAL EXAMINATION: GENERAL: The patient is an acutely ill-appearing female who is awake, in moderate distress. VITAL SIGNS: Stable; however, her hypotension is being maintained with norepinephrine, so she is un stable. She is afebrile. SKIN: Without generalized rash. HEENT: Within normal limits. NECK: Supple. LYMPH NODES: None palpable. CHEST: Decreased breath sounds at the bases. HEART: Without murmur or gallop. ABDOMEN: Soft, nontender, without organosplenomegaly or masses. EXTREMITIES: Without cyanosis, clubbing, or edema. RECTAL AND GENITAL: Deferred. NEUROLOGIC: No focal neurological abnormality. IMPRESSION AND PLAN: The patient has gram-negative sepsis secondary to cholecystitis. Her white co unt is up to 35.7. She will require invasive radiology to place a drain in her gallbladder. I will dictate my findings to Dr. Ibrahim and to the hospitalist. Dictated By: PRISCILLA REHMAN MD, JD/NTS Conf#: [id number] DID#: [id number] CC: SHERI PAULSON MD;*EndCC*
[2017-05-05 12:28] LABS: INR 1.27; PT RATIO 1.3
--- NOTE | 2017-05-05 13:07 | RADRPT ---
PROCEDURE: XR Chest. CLINICAL INDICATION: Shortness of breath. TECHNIQUE: Single frontal view of the chest was obtained COMPARISON: Chest radiograph dated May 04, 2017. FINDINGS: Left-sided PICC tip overlying the right atrium. The heart and mediastinum are within normal limits. The lungs are clear with no focal consolidation, pleural effusions, or pneumothorax. The osseous structures are grossly unremarkable. IMPRESSION: 1. No acute cardiopulmonary disease. RPTAT:AAJJ Physician Car Date Time Electronically viewed and signed by Bk Landaverde Physician on 05/05/2017 13:07 QL/
[2017-05-05] MEDS ORDERED: DIPHENHYDRAMINE 50 MG INJ ONE (14:16)
[2017-05-05] MEDS ORDERED: LIDOCAINE 1% (MDV) 20 ML INJ ONE (14:16)
[2017-05-05] MEDS ORDERED: FENTAnyl 50 MCG/ML VIAL ONE ×2 (14:16→15:11)
[2017-05-05] MEDS ORDERED: MIDAZOLAM 1 MG/ML 2 ML INJ ONE (15:11)
[2017-05-05] MEDS ORDERED: PROPOFOL 40 ML ONE (15:11)
[2017-05-05] MEDS ORDERED: PHENYLephrine (100 MCG/ML) 5ML SYG ONE (15:12)
[2017-05-05] MEDS ORDERED: EPHEDrine SULFATE 50 MG/5 ML SYG ONE (15:12)
[2017-05-05] MEDS ORDERED: FENTAnyl 50 MCG/ML VIAL IV PRN ×3 (16:00)
--- NOTE | 2017-05-05 16:27 | RADRPT ---
PROCEDURE: CT guided cholecystostomy. CLINICAL INDICATION: Right upper quadrant abdomen pain. Cholecystitis. The patient is too unstab le for surgery. TECHNIQUE: Informed consent was obtained. The procedure, risks, benefits, complications and alternatives were explained to the patient. Risks including bleeding and infection were explained. The patient under stood and was willing to proceed. A procedural pause was performed. The patient's name, date of bir th, and procedure to be performed were verified. One or more of the following dose reduction techn iques were used: Automated exposure control, adjustment of the mA and/or kV according to patient siz e, use of iterative reconstruction technique. DICOM images are available. Using local anesthetic, sterile technique and CT guidance, a 19-gauge Yueh needle was advanced throu gh the liver and into the gallbladder. CT scan was performed confirming position. Bilious fluid wa s also aspirated confirming position. The needle from the Yueh catheter was removed, leaving the Howe eh catheter in place within the gallbladder. A 0.035-inch Amplatz guidewire was advanced through th e Yueh catheter into the gallbladder. The Yueh catheter was removed. The tract was dilated to 8-Fr ench, and an 8.5 Nigerian multipurpose drainage catheter was advanced over the guidewire into the gall bladder. The guidewire was removed. Additional scanning was performed confirming position. The ca theter was then sutured to the patient's skin with 2-0 silk. Bilious fluid was aspirated. The cath eter was connected to a drainage bag. A dressing was applied. The patient tolerated procedure well. COMPARISON: None. FINDINGS: Final images demonstrate the drainage catheter in satisfactory position within the gallbladder. IMPRESSION: 1. Successful CT guided cholecystostomy. RPTAT: QQ .George Mari MD, Date Time Electronically viewed and signed by .George Mari MD, on 05/05/2017 16:27 .R/
[2017-05-05] MEDS: ALBUTEROL 0.083% (NEB) 2.5 MG/3 ML AMP HHN PRN (21:57)
[2017-05-06] VITALS (12 sets, daily range): BP systolic 107–139; BP diastolic 66–84; PULSE 71–89; RESP 18–22
[2017-05-06] MEDS: PIPER-TAZO 3.375 GM IV (PMX) 50 ML IVPB SCH ×4 (00:25→19:48)
[2017-05-06] MEDS: INSULIN ASPART [NOVOLOG] 3 ML PEN SC SCH ×6 (00:26→20:46)
[2017-05-06] MEDS: ACCU-CHEK XX SCH (02:00)
[2017-05-06] MEDS: SOD CHLORIDE 0.9% 1,000 ML IV SCH ×4 (02:00→19:20)
[2017-05-06] MEDS ORDERED: ALBUTEROL/IPRATROPIUM (NEB) 3 ML AMP HHN ONE (06:26)
--- NOTE | 2017-05-06 07:04 | RADRPT ---
PROCEDURE: XR Chest. CLINICAL INDICATION: Shortness of breath, wheezing. TECHNIQUE: Single frontal view of the chest was obtained. COMPARISON: 05/05/2017. FINDINGS: Left-sided PICC appear stable in position. The cardiomediastinal silhouette demonstrates enlargement of the cardiac silhouette. There are aorti c calcifications. There is increasing interstitial prominence. No pleural effusion is seen. No definite pneumothorax. No acute osseous abnormality. IMPRESSION: Cardiomegaly with increasing interstitial prominence, suggestive of interstitial edema. RPTAT: AAEE Kenton Childs Physician Date Time Electronically viewed and signed by Kenton Childs Physician on 05/06/2017 07:03 PH/
[2017-05-06 07:36] LABS: ABNORMAL IP MESSAGE 1; BASOPHILS % 0.2 % (0.0-2.0); HEMATOCRIT 29.9 % (37.0-47.0); HEMOGLOBIN 9.7 g/dl (12.0-16.0); LYMPHOCYTES # 2.3 10^3/ul (0.8-2.9); LYMPHOCYTES % 9.6 % (15.0-51.0); MEAN CORPUSCULAR HEMOGLOBIN 29.1 pg (29.0-33.0); MEAN CORPUSCULAR HGB CONC 32.4 g/dl (32.0-37.0); MEAN CORPUSCULAR VOLUME 89.8 fl (82.0-101.0); MEAN PLATELET VOLUME 11.7 fl (7.4-10.4); MONOCYTE # 0.9 10^3/ul (0.3-0.9); MONOCYTES % 3.8 % (0.0-11.0); NEUTROPHIL # 20.2 10^3/ul (1.6-7.5); NEUTROPHILS % 83.2 % (39.0-77.0); NUCLEATED RED BLOOD CELLS% 0.1 /100WBC (0.0-0.0); PLATELET COUNT 193 10^3/UL (140-415); RED BLOOD COUNT 3.33 10^6/ul (4.20-5.40); RED CELL DISTRIBUTION WIDTH 14.1 % (11.5-14.5)
[2017-05-06 07:42] LABS: POSITIVE DIFF @See below
[2017-05-06 07:44] LABS: WHITE BLOOD COUNT 24.3 10^3/ul (4.8-10.8)
[2017-05-06 07:49] LABS: ALBUMIN 2.9 g/dl (3.3-4.9); ALBUMIN/GLOBULIN RATIO 0.76; BILIRUBIN,INDIRECT 0.4 mg/dl (0-1.1); BILIRUBIN,TOTAL 0.4 mg/dl (0.2-1.3); CREATININE 0.85 mg/dl (0.44-1.00); MAGNESIUM 2.4 mg/dl (1.7-2.5); POTASSIUM 4.1 mmol/L (3.5-5.1); TOTAL PROTEIN 6.7 g/dl (6.1-8.1)
[2017-05-06] MEDS: FAMOTIDINE 20 MG INJ IV SCH ×2 (08:25→20:37)
--- NOTE | 2017-05-06 10:44 | PN ---
Date/Time of Note Date/Time of Note DATE: 05/06/17 TIME: 10:44 Assessment/Plan VTE Prophylaxis VTE Prophylaxis Intervention: SCD's Lines/Catheters IV Catheter Type (from Nrs): PICC Line Central line still needed: Yes Urinary Cath still in place: No Assessment/Plan Assessment/Plan 1. Septic shock secondary to acute cholecystitis- improving - Patient improving and no longer experiencing fevers and WBC trending downward - Lactic acid normalized following fluid resuscitation and IV antibiotics - Surgery on board and consultation appreciated. Dr. Ibrahim will proceed with elective lap julissa once acute infection resolves 2. Bacteremia - Blood cultures growing gram negative rods - Currently Zosyn day 2 - ID consultation appreciated - repeat blood cultures drawn today 3. Hypotension - Resolved. no longer requiring pressor support 4. Diabetes Mellitus, well controlled - A1c 6.2 - Will continue on ISS and accuchecks - Hold home Metformin 5. Acute cholecystitis s/p percutaneous cholecystostomy placed on 05/05 - Surgery on board - LFTs trending downward 6. SOB - neb treatment as needed - Will give one dose of Lasix since CXR showing interstitial edema 7. JAKY - resolved with fluid 8. Disposition - continue monitoring in telemetry Subjective 24 Hr Interval Summary Free Text/Dictation Patient has expiratory wheezing and mildly labored with talking. c/o pain at site of drain. No acute overnight events. Exam/Review of Systems Vital Signs Vitals Vital Signs Date Time Temp Pulse Resp B/P Pulse Ox O2 Delivery O2 Flow Rate FiO2 05/06/17 08:52 89 05/06/17 07:53 98.8 19 134/69 99 05/06/17 06:46 Nasal Cannula 3.0 05/05/17 11:36 33 Intake and Output 05/05/17 05/05/17 05/06/17 15:00 23:00 07:00 Intake Total 1350 ml Output Total 360 ml 135 ml 900 ml Balance -360 ml -135 ml 450 ml Exam General: nervous but no acute distress, awake and alert HEENT: PERRL, EOMI, neck supple CVS: S1, S2, RRR, no murmurs or extra sounds Lungs: CTA b/l, no wheezing or rhonchi GI: soft, RUQ tenderness, nondistended, no rebound or guarding Ext: moving all extremities, no edema, cyanosis, or clubbing Skin: no new rashes Results Result Diagram: 05/06/17 0643 05/06/17 0643 Results 24 hrs Laboratory Tests Test 05/05/17 11:49 05/05/17 13:06 05/05/17 16:56 05/05/17 20:27 Prothrombin Time 16.0 H Prothrombin Time Ratio 1.3 INR International Normalized Ratio 1.27 Bedside Glucose 201 181 144 Test 05/06/17 00:24 05/06/17 05:42 05/06/17 06:43 05/06/17 08:23 Bedside Glucose 149 140 155 White Blood Count 24.3 #H Red Blood Count 3.33 L Hemoglobin 9.7 L Hematocrit 29.9 L Mean Corpuscular Volume 89.8 Mean Corpuscular Hemoglobin 29.1 Mean Corpuscular Hemoglobin Concent 32.4 Red Cell Distribution Width 14.1 Platelet Count 193 Mean Platelet Volume 11.7 H Neutrophils % 83.2 H Lymphocytes % 9.6 L Monocytes % 3.8 Eosinophils % 0.0 Basophils % 0.2 Nucleated Red Blood Cells % 0.1 H Neutrophils # 20.2 H Lymphocytes # 2.3 Monocytes # 0.9 Eosinophils # 0.0 Basophils # 0.0 Nucleated Red Blood Cells # 0.0 Sodium Level 143 Potassium Level 4.1 Chloride Level 111 H Carbon Dioxide Level 23 Anion Gap 13 Blood Urea Nitrogen 19 Creatinine 0.85 Glucose Level 143 # Calcium Level 8.0 L Magnesium Level 2.4 Total Bilirubin 0.4 Direct Bilirubin 0.00 Indirect Bilirubin 0.4 Aspartate Amino Transf (AST/SGOT) 59 H Alanine Aminotransferase (ALT/SGPT) 159 H Alkaline Phosphatase 163 H Total Protein 6.7 Albumin 2.9 L Globulin 3.80 H Albumin/Globulin Ratio 0.76 Medications Medications Current Medications Ondansetron HCl (Zofran Inj) 4 mg Q6H PRN IV NAUSEA AND/OR VOMITING; Start at 06:30 Acetaminophen 650 mg 650 mg Q6H PRN PO PAIN LEVEL 1-3 OR FEVER; Start at 06:30 Piperacillin Sod/ Tazobactam Sod 50 ml @ 100 mls/hr Q6 IVPB Last administered on 05/06/17t 05:41; Admin Dose 100 MLS/HR; Start 05/04/17 at 06:30 Sodium Chloride (NS) 1,000 ml @ 125 mls/hr Q8H IV Last administered on 03:08; Admin Dose 125 MLS/HR; Start 05/04/17 at 10:00 Famotidine (Pepcid Iv) 20 mg BID IV Last administered on 05/06/17 08:25; Admin Dose 20 MG; Start 05/04/17 at 21:00 Diagnostic Test (Pha) (Accu-Chek) 1 ea 02 XX ; Start 05/05/17 at 02:00 Insulin Aspart (Novolog Insulin Pen) NOVOLOG *MILD* ALGORI... Q4 SC Last administered on 05/06/17 08:29; Admin Dose 1 UNIT; Start 05/04/17 at 13:00 Miscellaneous Information 1 ea NOTE XX ; Start 05/04/17 at 10:30 Glucose (Glutose) 15 gm Q15M PRN PO DECREASED GLUCOSE; Start 05/04/17 at 10:30 Glucose (Glutose) 22.5 gm Q15M PRN PO DECREASED GLUCOSE; Start 05/04/17 at 10: 30 Dextrose (D50w Syringe) 25 ml Q15M PRN IV DECREASED GLUCOSE; Start 05/04/17 at 10:30 Dextrose (D50w Syringe) 50 ml Q15M PRN IV DECREASED GLUCOSE; Start 05/04/17 at 10:30 Glucagon (Glucagen) 1 mg Q15M PRN IM DECREASED GLUCOSE; Start 05/04/17 at 10: 30 Glucose (Glutose) 15 gm Q15M PRN BUCCAL DECREASED GLUCOSE; Start 05/04/17 at 10:30 TMI GARCIA MD May 06, 2017 10:44
[2017-05-06] MEDS: ALBUTEROL/IPRATROPIUM (NEB) 3 ML AMP HHN SCH ×3 (11:00→20:00)
[2017-05-06] MEDS ORDERED: FUROSEMIDE 40 MG INJ IV ONE (15:30)
[2017-05-06] MEDS: ALBUTEROL 0.083% (NEB) 2.5 MG/3 ML AMP HHN PRN (20:37)
[2017-05-07] VITALS (13 sets, daily range): BP systolic 119–139; BP diastolic 60–75; PULSE 43–56; RESP 16–20
[2017-05-07] MEDS: PIPER-TAZO 3.375 GM IV (PMX) 50 ML IVPB SCH ×4 (00:38→17:13)
[2017-05-07] MEDS: INSULIN ASPART [NOVOLOG] 3 ML PEN SC SCH ×6 (00:42→20:48)
[2017-05-07] MEDS: SOD CHLORIDE 0.9% 1,000 ML IV SCH ×3 (01:00→20:40)
[2017-05-07] MEDS: ACCU-CHEK XX SCH (01:52)
[2017-05-07 06:18] LABS: ABNORMAL IP MESSAGE 1; HEMATOCRIT 28.8 % (37.0-47.0); HEMOGLOBIN 9.8 g/dl (12.0-16.0); MEAN CORPUSCULAR HEMOGLOBIN 29.7 pg (29.0-33.0); MEAN CORPUSCULAR VOLUME 87.3 fl (82.0-101.0); NUCLEATED RED BLOOD CELLS% 0.3 /100WBC (0.0-0.0); PLATELET COUNT 199 10^3/UL (140-415); RED CELL DISTRIBUTION WIDTH 13.8 % (11.5-14.5); WHITE BLOOD COUNT 17.9 10^3/ul (4.8-10.8)
[2017-05-07 06:27] LABS: POSITIVE DIFF @See below
[2017-05-07 07:01] LABS: ALBUMIN 2.9 g/dl (3.3-4.9); ALBUMIN/GLOBULIN RATIO 0.76; BILIRUBIN,INDIRECT 0.6 mg/dl (0-1.1); BILIRUBIN,TOTAL 0.6 mg/dl (0.2-1.3); CALCIUM 8.1 mg/dl (8.4-10.2); CREATININE 0.79 mg/dl (0.44-1.00); MAGNESIUM 1.9 mg/dl (1.7-2.5); POTASSIUM 4.1 mmol/L (3.5-5.1); TOTAL PROTEIN 6.7 g/dl (6.1-8.1)
[2017-05-07 07:33] LABS: METAMYELOCYTES %M 2 % (0-0); MONOCYTES % (M) 3 % (0-11); MYELOCYTES % (M) 2 % (0-0); PLATELET ESTIMATE NORMAL; POLYCHROMASIA 3+ (0-0)
[2017-05-07] MEDS: ALBUTEROL/IPRATROPIUM (NEB) 3 ML AMP HHN SCH ×3 (07:50→20:25)
[2017-05-07] MEDS: FAMOTIDINE 20 MG INJ IV SCH (09:14)
--- NOTE | 2017-05-07 14:52 | PN ---
Date/Time of Note Date/Time of Note DATE: 05/07/17 TIME: 14:44 Assessment/Plan VTE Prophylaxis VTE Prophylaxis Intervention: SCD's Lines/Catheters IV Catheter Type (from [facility]): PICC Line Central line still needed: Yes Urinary Cath still in place: No Assessment/Plan Assessment/Plan 1. Septic shock secondary to acute cholecystitis- resolving - Patient improving and no longer experiencing fevers and WBC trending downward appropriately - Lactic acid normalized following fluid resuscitation and IV antibiotics - Surgery on board and consultation appreciated. Dr. Ibrahim will proceed with elective lap julissa once acute infection resolves. Spoke with covering surgeon and agrees with current plan 2. Bacteremia - Blood cultures growing gram negative rods - Currently Zosyn day 3 - ID consultation appreciated - repeat blood cultures drawn and so far negative 3. Hypotension - Resolved. no longer requiring pressor support 4. Diabetes Mellitus, well controlled - A1c 6.2 - Will continue on ISS and accuchecks - Hold home Metformin 5. Acute cholecystitis s/p percutaneous cholecystostomy placed on 05/05 - Surgery on board - LFTs trending downward 6. SOB - neb treatment as needed - improved after dose of Lasix yesterday 7. JAKY - resolved with fluid 8. Disposition - continue monitoring in telemetry Subjective 24 Hr Interval Summary Free Text/Dictation Patient doing significantly better and denies any abdominal pain or shortness of breath. Draining brown fluid but no signs of blood. No acute overnight events. Exam/Review of Systems Vital Signs Vitals Vital Signs Date Time Temp Pulse Resp B/P Pulse Ox O2 Delivery O2 Flow Rate FiO2 05/07/17 13:55 58 18 92 21 05/07/17 11:49 97.8 130/64 05/07/17 08:00 Nasal Cannula 2.0 Intake and Output 05/06/17 05/06/17 05/07/17 15:00 23:00 07:00 Intake Total 50 ml 1550 ml 1040 ml Output Total 4600 ml 660 ml Balance 50 ml -3050 ml 380 ml Exam General: no acute distress, awake and alert. HEENT: PERRL, EOMI, neck supple CVS: S1, S2, RRR, no murmurs or extra sounds Lungs: CTA b/l, no wheezing or rhonchi. GI: soft, mild RUQ tenderness, nondistended, no rebound or guarding. drain in place Ext: moving all extremities, no edema, cyanosis, or clubbing Skin: no new rashes Results Result Diagram: 05/07/17 0540 05/07/17 0540 Results 24 hrs Laboratory Tests Test 05/06/17 17:29 05/06/17 20:41 05/07/17 00:40 05/07/17 05:39 Bedside Glucose 165 189 225 H 218 Test 05/07/17 05:40 05/07/17 09:12 05/07/17 12:36 White Blood Count 17.9 #H Red Blood Count 3.30 L Hemoglobin 9.8 L Hematocrit 28.8 L Mean Corpuscular Volume 87.3 Mean Corpuscular Hemoglobin 29.7 Mean Corpuscular Hemoglobin Concent 34.0 Red Cell Distribution Width 13.8 Platelet Count 199 Mean Platelet Volume 12.0 H Neutrophils % Segmented Neutrophils % (Manual) 75 Band Neutrophils % (Manual) 6 H Lymphocytes % Lymphocytes % (Manual) 12 L Monocytes % Monocytes % (Manual) 3 Eosinophils % Basophils % Metamyelocytes % (manual) 2 H Myelocytes % (Manual) 2 H Nucleated Red Blood Cells % 0.3 H Neutrophils # Neutrophils # (Manual) 13.6 H Band Neutrophils # 1.0 H Absolute Lymphocytes (Manual) 2.1 Lymphocytes # Monocytes # Absolute Monocytes (Manual) 0.5 Eosinophils # Basophils # Metamyelocytes # 0.3 H Myelocytes # 0.3 H Nucleated Red Blood Cells # Platelet Estimate NORMAL Polychromasia 3+ Sodium Level 141 Potassium Level 4.1 Chloride Level 104 Carbon Dioxide Level 28 Anion Gap 13 Blood Urea Nitrogen 17 Creatinine 0.79 Glucose Level 217 Calcium Level 8.1 L Magnesium Level 1.9 Total Bilirubin 0.6 Direct Bilirubin 0.00 Indirect Bilirubin 0.6 Aspartate Amino Transf (AST/SGOT) 37 Alanine Aminotransferase (ALT/SGPT) 136 H Alkaline Phosphatase 146 H Total Protein 6.7 Albumin 2.9 L Globulin 3.80 H Albumin/Globulin Ratio 0.76 Bedside Glucose 222 H 220 Medications Medications Current Medications Ondansetron HCl (Zofran Inj) 4 mg Q6H PRN IV NAUSEA AND/OR VOMITING; Start at 06:30 Acetaminophen 650 mg 650 mg Q6H PRN PO PAIN LEVEL 1-3 OR FEVER; Start at 06:30 Piperacillin Sod/ Tazobactam Sod 50 ml @ 100 mls/hr Q6 IVPB Last administered on 05/07/17 11:29; Admin Dose 100 MLS/HR; Start 05/04/17 at 06:30 Sodium Chloride (NS) 1,000 ml @ 70 mls/hr [id number] IV Last administered on 05/07 01:00; Admin Dose 70 MLS/HR; Start 05/04/17 at 10:00 Famotidine (Pepcid Iv) 20 mg BID IV Last administered on 05/07/17 09:14; Admin Dose 20 MG; Start 05/04/17 at 21:00 Diagnostic Test (Pha) (Accu-Chek) 1 ea 02 XX ; Start 05/05/17 at 02:00 Insulin Aspart (Novolog Insulin Pen) NOVOLOG *MILD* ALGORI... Q4 SC Last administered on 05/07/17 12:44; Admin Dose 2 UNIT; Start 05/04/17 at 13:00 Miscellaneous Information 1 ea NOTE XX ; Start 05/04/17 at 10:30 Glucose (Glutose) 15 gm Q15M PRN PO DECREASED GLUCOSE; Start 05/04/17 at 10:30 Glucose (Glutose) 22.5 gm Q15M PRN PO DECREASED GLUCOSE; Start 05/04/17 at 10: 30 Dextrose (D50w Syringe) 25 ml Q15M PRN IV DECREASED GLUCOSE; Start 05/04/17 at 10:30 Dextrose (D50w Syringe) 50 ml Q15M PRN IV DECREASED GLUCOSE; Start 05/04/17 at 10:30 Glucagon (Glucagen) 1 mg Q15M PRN IM DECREASED GLUCOSE; Start 05/04/17 at 10: 30 Glucose (Glutose) 15 gm Q15M PRN BUCCAL DECREASED GLUCOSE; Start 05/04/17 at 10:30 TIM GARCIA MD May 07, 2017 14:52
[2017-05-07] MEDS: FAMOTIDINE 20 MG TAB PO SCH (20:41)
[2017-05-08] VITALS (12 sets, daily range): BP systolic 113–155; BP diastolic 58–76; PULSE 49–73; RESP 16–18
[2017-05-08] MEDS: PIPER-TAZO 3.375 GM IV (PMX) 50 ML IVPB SCH ×4 (00:38→17:32)
[2017-05-08] MEDS: INSULIN ASPART [NOVOLOG] 3 ML PEN SC SCH ×6 (01:54→20:31)
[2017-05-08] MEDS: ACCU-CHEK XX SCH (01:56)
[2017-05-08 06:01] LABS: ABNORMAL IP MESSAGE 1; HEMATOCRIT 28.4 % (37.0-47.0); HEMOGLOBIN 9.4 g/dl (12.0-16.0); MEAN CORPUSCULAR HEMOGLOBIN 29.3 pg (29.0-33.0); MEAN CORPUSCULAR HGB CONC 33.1 g/dl (32.0-37.0); MEAN CORPUSCULAR VOLUME 88.5 fl (82.0-101.0); MEAN PLATELET VOLUME 11.7 fl (7.4-10.4); NUCLEATED RED BLOOD CELLS% 0.2 /100WBC (0.0-0.0); PLATELET COUNT 228 10^3/UL (140-415); RED BLOOD COUNT 3.21 10^6/ul (4.20-5.40); RED CELL DISTRIBUTION WIDTH 13.9 % (11.5-14.5)
[2017-05-08 06:17] LABS: POSITIVE DIFF @See below
[2017-05-08 06:48] LABS: ALBUMIN 2.6 g/dl (3.3-4.9); ALBUMIN/GLOBULIN RATIO 0.78; BILIRUBIN,INDIRECT 0.5 mg/dl (0-1.1); BILIRUBIN,TOTAL 0.5 mg/dl (0.2-1.3); CALCIUM 7.9 mg/dl (8.4-10.2); CREATININE 0.76 mg/dl (0.44-1.00); MAGNESIUM 1.9 mg/dl (1.7-2.5); POTASSIUM 3.5 mmol/L (3.5-5.1); TOTAL PROTEIN 5.9 g/dl (6.1-8.1)
[2017-05-08] MEDS: ALBUTEROL/IPRATROPIUM (NEB) 3 ML AMP HHN SCH ×3 (07:43→19:27)
[2017-05-08 08:15] LABS: EOSINOPHILS % (M) 1 % (0-7); GIANT THROMBO% (M) 1 % (0-0); METAMYELOCYTES %M 1 % (0-0); MONOCYTES % (M) 10 % (0-11); MYELOCYTES % (M) 1 % (0-0); PLASMA CELLS #M 0.1 10^3/ul (0.0-0.0); PLASMAC%(M) 1 % (0); PLATELET ESTIMATE NORMAL; POLYCHROMASIA 1+ (0-0); PROMYELOCYTES #M 0.1 10^3/ul (0-0); PROMYELOCYTES % (M) 1 % (0-0)
[2017-05-08] MEDS: FAMOTIDINE 20 MG TAB PO SCH ×2 (08:58→20:30)
[2017-05-08] MEDS: SOD CHLORIDE 0.9% 1,000 ML IV SCH (10:22)
--- NOTE | 2017-05-08 14:16 | PN ---
Date/Time of Note Date/Time of Note DATE: 05/08/17 TIME: 14:05 Assessment/Plan VTE Prophylaxis VTE Prophylaxis Intervention: SCD's Lines/Catheters IV Catheter Type (from [facility]): PICC Line Central line still needed: Yes Urinary Cath still in place: No Assessment/Plan Assessment/Plan 1. Septic shock secondary to acute cholecystitis- resolving - Patient still has an elevated WBC but no neutrophils and bandemia improving - Lactic acid normalized following fluid resuscitation and IV antibiotics - trop elevated during acute event and will recheck to ensure normalization - Surgery on board and consultation appreciated. Dr. Ibrahim will proceed with elective lap julissa once acute infection resolves. Spoke with covering surgeon and agrees with current plan. Patient will need to go home with drain and follow up with surgery 2. Bacteremia - Blood cultures growing gram negative rods - Currently Zosyn day 4 - ID consultation appreciated and awaiting further input - repeat blood cultures drawn and negative 3. Hypotension - Resolved. no longer requiring pressor support 4. Diabetes Mellitus, well controlled - A1c 6.2 - Will continue on ISS and accuchecks - Hold home Metformin 5. Acute cholecystitis s/p percutaneous cholecystostomy placed on 05/05 - Surgery on board - LFTs trending downward 6. SOB - neb treatment as needed 7. JAKY - resolved with fluid 8. Diarrhea - will check for Cdiff - start on probiotics 9. Disposition - continue monitoring in telemetry - Would like WBC closer to normal prior to discharge home - Advance diet to carb control Subjective 24 Hr Interval Summary Free Text/Dictation Patient feeling significantly better. Does complain of a dry cough that is troublesome and offered a cough suppressant but refusing right now. No acute overnight events. Exam/Review of Systems Vital Signs Vitals Vital Signs Date Time Temp Pulse Resp B/P Pulse Ox O2 Delivery O2 Flow Rate FiO2 05/08/17 13:31 56 20 98 Nasal Cannula 2.0 05/08/17 12:01 97.6 116/58 05/07/17 13:55 21 Intake and Output 05/07/17 05/07/17 05/08/17 14:59 22:59 06:59 Intake Total 50 ml 1550 ml 860 ml Output Total 20 ml Balance 50 ml 1550 ml 840 ml Exam General: no acute distress, awake and alert. HEENT: PERRL, EOMI, neck supple CVS: S1, S2, RRR, no murmurs or extra sounds Lungs: CTA b/l, no wheezing or rhonchi. GI: soft, nontender, nondistended, no rebound or guarding. drain in place with brown fluid Ext: moving all extremities, no edema, cyanosis, or clubbing Skin: no new rashes Results Result Diagram: 05/08/17 0510 05/08/17 0531 Results 24 hrs Laboratory Tests Test 05/07/17 17:19 05/07/17 20:30 05/08/17 01:51 05/08/17 05:10 Bedside Glucose 229 H 201 173 White Blood Count 19.0 H Red Blood Count 3.21 L Hemoglobin 9.4 L Hematocrit 28.4 L Mean Corpuscular Volume 88.5 Mean Corpuscular Hemoglobin 29.3 Mean Corpuscular Hemoglobin Concent 33.1 Red Cell Distribution Width 13.9 Platelet Count 228 Mean Platelet Volume 11.7 H Neutrophils % Segmented Neutrophils % (Manual) 66 Band Neutrophils % (Manual) 3 Lymphocytes % Lymphocytes % (Manual) 15 Monocytes % Monocytes % (Manual) 10 Eosinophils % Eosinophils % (Manual) 1 Basophils % Metamyelocytes % (manual) 1 H Myelocytes % (Manual) 1 H Promyelocytes % (Manual) 1 H Plasma Cells % (manual) 1 Nucleated Red Blood Cells % 0.2 H Neutrophils # Neutrophils # (Manual) 12.6 H Band Neutrophils # 0.5 Absolute Lymphocytes (Manual) 2.8 Lymphocytes # Monocytes # Absolute Monocytes (Manual) 1.9 H Eosinophils # Basophils # Metamyelocytes # 0.1 H Myelocytes # 0.1 H Promyelocytes # 0.1 H Plasma Cells # (manual) 0.1 H Nucleated Red Blood Cells # Platelet Estimate NORMAL Giant Platelets 1 H Polychromasia 1+ Test 05/08/17 05:31 05/08/17 05:32 05/08/17 08:57 Sodium Level 142 Potassium Level 3.5 Chloride Level 107 Carbon Dioxide Level 28 Anion Gap 11 Blood Urea Nitrogen 17 Creatinine 0.76 Glucose Level 151 Calcium Level 7.9 L Magnesium Level 1.9 Total Bilirubin 0.5 Direct Bilirubin 0.00 Indirect Bilirubin 0.5 Aspartate Amino Transf (AST/SGOT) 23 Alanine Aminotransferase (ALT/SGPT) 91 H Alkaline Phosphatase 111 Total Protein 5.9 L Albumin 2.6 L Globulin 3.30 H Albumin/Globulin Ratio 0.78 Bedside Glucose 156 111 Medications Medications Current Medications Ondansetron HCl (Zofran Inj) 4 mg Q6H PRN IV NAUSEA AND/OR VOMITING; Start at 06:30 Acetaminophen 650 mg 650 mg Q6H PRN PO PAIN LEVEL 1-3 OR FEVER; Start at 06:30 Piperacillin Sod/ Tazobactam Sod 50 ml @ 100 mls/hr Q6 IVPB Last administered on 05/08/17 05:33; Admin Dose 100 MLS/HR; Start 05/04/17 at 06:30 Sodium Chloride (NS) 1,000 ml @ 70 mls/hr [id number] IV Last administered on 05/07 20:40; Admin Dose 70 MLS/HR; Start 05/04/17 at 10:00 Diagnostic Test (Pha) (Accu-Chek) 1 ea 02 XX Last administered on 05/08/17 01: 56; Admin Dose 1 EA; Start 05/05/17 at 02:00 Insulin Aspart (Novolog Insulin Pen) NOVOLOG *MILD* ALGORI... Q4 SC Last administered on 05/08/17 05:34; Admin Dose 1 UNIT; Start 05/04/17 at 13:00 Miscellaneous Information 1 ea NOTE XX ; Start 05/04/17 at 10:30 Glucose (Glutose) 15 gm Q15M PRN PO DECREASED GLUCOSE; Start 05/04/17 at 10:30 Glucose (Glutose) 22.5 gm Q15M PRN PO DECREASED GLUCOSE; Start 05/04/17 at 10: 30 Dextrose (D50w Syringe) 25 ml Q15M PRN IV DECREASED GLUCOSE; Start 05/04/17 at 10:30 Dextrose (D50w Syringe) 50 ml Q15M PRN IV DECREASED GLUCOSE; Start 05/04/17 at 10:30 Glucagon (Glucagen) 1 mg Q15M PRN IM DECREASED GLUCOSE; Start 05/04/17 at 10: 30 Glucose (Glutose) 15 gm Q15M PRN BUCCAL DECREASED GLUCOSE; Start 05/04/17 at 10:30 Famotidine (Pepcid) 20 mg BID PO Last administered on 05/08/17 08:58; Admin Dose 20 MG; Start 05/07/17 at 21:00 TIM GARCIA MD May 08, 2017 14:16
[2017-05-08 15:13] LABS: CK-MB 0.46 ng/ml (0.0-2.4); TROPONIN-I 0.077 ng/ml (0.00-0.12)
[2017-05-08] MEDS: LACTOBACILLUS RHAMNOSUS CAP PO SCH (17:36)
--- NOTE | 2017-05-08 17:41 | PN ---
DATE: 05/08/2017 Status post percutaneous drainage of the gallbladder because of acute severe cholecystitis and sepsis, postop day #3. SUBJECTIVE: Feels better, has had 4 bowel movements yesterday, but loose to diarrhea. No nausea, no vomiting. OBJECTIVE: GENERAL: Alert, awake, oriented. VITAL SIGNS: Temperature maximum 98.5, heart rate 69, respirations 18, blood pressure 136/70, saturation 97% on 2 liters nasal cannula. HEART: Regular. LUNGS: Clear. ABDOMEN: protruded with fat, soft. Pigtail drain in the cholecystomy is in place. LABORATORY DATA: WBC is still up at 19,000 with 66% neutrophils and 3% bands, hemoglobin 9.4, hematocrit 28.4. Chemistry: Sodium, potassium, BUN, creatinine normal. Calcium 7.9. AST dropped to 23, normal. ALT 91, still is high. Alk phos normal. Total protein 5.9, albumin 2.6. Drainages in the past 24 hours: The pigtail drain _in the gallbladder has drained only 20 mL. ASSESSMENT: A 57-year-old female presented with sepsis and low blood pressure, was found to have acute cholecystitis and severe edema around the gallbladder on CT scan. The patient is diabetic, hypertensive to begin with. Since high risk patient, decision was made by consulting surgeon to proceed with percutaneous drainage of the gallbladder, which was done. The leukocyte count 2 days after admission was 24,000, now is dropping down to 19,000. Chemistry on admission revealed lactic acid was 7.5, gradually dropped to 4.1. Creatinine was 1.44 on admission, but now creatinine is back to normal, 0.76. The patient is responding to percutaneous drainage and antibiotic treatment. Meanwhile, she is getting tuned up for control of diabetes and also blood pressure alterations. From a surgical point of view, recommend continuation of the same treatment, and eventually when the patient is ready to be discharged, from a medical point of view, she can be discharged with cholecystostomy tube in place, to be followed in the office by Dr. Ibrahim to make a decision for elective time for cholecystectomy. Dictated By: ESTEPHANIE PEREZ MD PS/NTS Conf#: [id number] DID#: [id number] CC: SHERI PAULSON MD;*EndCC* MTDD
--- NOTE | 2017-05-08 20:28 | PN ---
DATE: 05/08/2017 INFECTIOUS DISEASE PROGRESS NOTE SUBJECTIVE: Patient is alert, feels better, looks comfortable. She is afebrile. Plan to advance h er diet. LABORATORY DATA: WBC today 19, H and H 9.4 and 28.4, platelets 228. BUN 17, creatinine 0.76. MICROBIOLOGY: Blood culture initially grew Enterobacter cloacae and Klebsiella pneumoniae. ANTIMICROBIALS: The patient is on Zosyn. INDWELLINGS: Right abdominal drainage catheters. PHYSICAL EXAMINATION: GENERAL: This is an obese, well-developed, middle-aged woman who is alert, in no distress. HEENT: Head atraumatic, normocephalic. Sclerae anicteric. Buccal mucosa pink. NECK: Supple. CHEST: Rise symmetrical. Breath sounds diminished to bases. HEART: S1, S2. ABDOMEN: Soft. Bowel tones present. EXTREMITIES: Without cyanosis. ASSESSMENT: 1. Status post septic shock. 2. Persistent leukocytosis. 3. Acute cholecystitis status post cholecystostomy. Percutaneous cholecystostomy placed on 017. 4. Diabetes. 5. Hypertension. PLAN: The patient remains stable, clinically improving, still with significant leukocytosis. Surge ry on case. We will continue her on Zosyn for now. Plan to advance diet. Monitor labs. Further r ecommendations per patient's clinical course. Dictated By: FRANCES RASMUSSEN SENIOR STRUCTURAL ENGINEER for PRISCILLA REHMAN MD NI/NTS Conf#: [id number] DID#: [id number] CC: SHERI PAULSON MD;*EndCC*
[2017-05-09] VITALS (12 sets, daily range): BP systolic 112–152; BP diastolic 58–86; PULSE 58–93; RESP 18
[2017-05-09] MEDS: SOD CHLORIDE 0.9% 1,000 ML IV SCH ×2 (00:22→15:12)
[2017-05-09] MEDS: PIPER-TAZO 3.375 GM IV (PMX) 50 ML IVPB SCH ×3 (00:22→11:59)
[2017-05-09] MEDS: INSULIN ASPART [NOVOLOG] 3 ML PEN SC SCH ×6 (01:00→21:00)
[2017-05-09] MEDS: ACCU-CHEK XX SCH (01:37)
--- NOTE | 2017-05-09 07:04 | PN ---
DATE: 05/07/2017 SURGICAL PROGRESS NOTE FOLLOWUP SUBJECTIVE: This is a 57-year-old female with history of diabetes mellitus on medications, and hypertensive history who was admitted because of sepsis and it was found that the source be from gallbladder, so they did percutaneous drainage of the gallbladder on 05/05/2017 and continued on antibiotics. Now patient feels better, but also complains that she has started wheezing, as she has some episodes at home in the past and no chills, no fever, no vomiting, no nausea. Has had a small amount of diarrhea, no good bowel movement. OBJECTIVE: GENERAL: Vital signs stable, alert, awake, oriented, sitting in the chair at bedside. VITAL SIGNS: Temperature 97.8, heart rate 55, regular, respirations 18, blood pressure 130/64, saturation fluctuating between 99 to 92% on room air. TODAY LABORATORY RESULTS: WBC has dropped to 17,900 with 75% neutrophils and 6 % bands. Hemoglobin 9.8, hematocrit 28.8. On admission it was 12.7 and 37.2. Chemistry: Today sodium and potassium normal. BUN and creatinine normal. POC glucose 225. ALT slightly elevated at 136, alkaline phosphatase 146, which is slightly elevated. Albumin 2.9, bilirubin total is 0.6. MICROBIOLOGY: Blood culture final is Enterobacter cloacae, complex. Also another final report on 05/03 is Enterobacter cloacae and Klebsiella pneumoniae. The patient is responding to antibiotic regimen that she is receiving now. PHYSICAL EXAMINATION: Abdomen is soft,. The gallbladder is draining dirty brownish liquid, less looking like bile. Some debris is in that. The drainage for 24 hours was urine total 5200 mL (She has received Lasix). The amount of drainage is not specifically mentioned in the computer that this is coming from the across the wound drain, but there is one paragraph that says drain assessment total 60 mL in the past 24 hours. Most probably this is from the gallbladder. ASSESSMENT: A 57-year-old female with diabetes mellitus and hypertension, was admitted with sepsis. Origin was found to be most probably from gallbladder. There is distended gallbladder on CT scan. Percutaneous drainage of the abscess was performed. Again, I am not sure if they sent it for culture or not , but even if they have sent it, the result is not back yet. The patient is responding to current antibiotic; the WBC has been dropping gradually. The patient is not on any pressor and making a lot of urine, of course with also help of Lasix. I discussed with about patient's reported chest x- ray and also the fact that CT scan showed a lot of fecal impaction in the rectum and sigmoid, so that maybe the patient can receive something to mobilize the bowel. From a surgical point of view, the patient appears to be gradually stabilizing. No anticipated cholecystectomy in the near future. Dictated By: ESTEPHANIE PEREZ MD PS/NTS Conf#: [id number] DID#: [id number] CC: SHERI PAULSON MD;*EndCC* MTDD
--- NOTE | 2017-05-09 07:09 | PN ---
DATE: 05/07/2017 INFECTIOUS DISEASE PROGRESS NOTE SUBJECTIVE: No acute events. Patient is alert, feels better, tolerates clear liquids. No fevers. WBC today 17.9, platelets 199, neutrophils 75, bands 6, BUN 17, creatinine 0.79. MICROBIOLOGY: Blood culture growing Enterobacter cloacae complex and Klebsiella pneumoniae. Both s usceptible to all antibiotics. ANTIMICROBIALS: The patient is on Zosyn. INDWELLINGS: The patient has, right-sided abdominal drainage catheter. PHYSICAL EXAMINATION: GENERAL: Well-developed, obese, ____ middle-aged woman who is awake, in no distress. HEENT: Atraumatic, normocephalic. Sclerae anicteric. Buccal mucosa pink. NECK: Supple. CHEST: Rise symmetrical. Breath sounds clear. HEART: S1, S2. ABDOMEN: Soft. Bowel sounds present. EXTREMITIES: Without cyanosis. ASSESSMENT: 1. Sepsis with polymicrobial bacteremia secondary to #2. 2. Acute cholecystitis, status post CT-guided cholecystostomy placement. 3. Diabetes. 4. Morbid obesity. 5. Status post septic shock. PLAN: The patient remains stable. Overall, improving. WBC tracing down. We will continue her on current regimen. Await for repeat blood cultures. Follow surgical recommendations. Dictated By: FRANCES RASMUSSEN SHOP HAND for PRISCILLA SWANN/NIKA Conf#: [id number] DID#: [id number]
--- NOTE | 2017-05-09 08:10 | PN ---
DATE: 05/16/2007 SUBJECTIVE: Patient is alert, feels better, looks comfortable, still has significant discomfort in her left upper quadrant where the drain is. LABORATORY DATA: WBC today 24.3 with H and H 9.7 and 29.9, platelets 193, neutrophils 83.2, no band s. BUN 19, creatinine 0.85. MICROBIOLOGY: Blood culture growing gram-negative rods. DIAGNOSTICS: Chest x-ray this morning revealed no pleural effusion, no pneumothorax. Questionable interstitial edema. INDWELLINGS: The patient has a PICC line, Caro, right-sided intra-abdominal drainage catheter. ANTIMICROBIALS: She is on Zosyn. PHYSICAL EXAMINATION: GENERAL: This is an obese, well-developed, middle-aged woman who is awake, in no distress. HEENT: Atraumatic, normocephalic. Sclerae are anicteric. Buccal mucosa dry. NECK: Supple. CHEST: Rise symmetrical. Breath sounds diminished to bases. HEART: S1, S2. ABDOMEN: Soft. Bowel sounds present. EXTREMITIES: Without cyanosis. ASSESSMENT: 1. Severe sepsis with gram-negative rods bacteremia secondary to #2. 2. Acute cholecystitis status post CT-guided cholecystostomy. 3. Obesity. 4. Diabetes. 5. Hypertension. PLAN: The patient remains stable. We are going to continue her on current antimicrobials. Repeat blood cultures, await for final cultures. Follow surgical recommendations. Dictated By: FRANCES RASMUSSEN WAVE GUIDE ASSEMBLER for PRISCILLA SWANN/NTS Conf#: [id number] DID#: [id number]
[2017-05-09] MEDS: ALBUTEROL/IPRATROPIUM (NEB) 3 ML AMP HHN SCH ×3 (08:30→19:30)
[2017-05-09] MEDS: FAMOTIDINE 20 MG TAB PO SCH ×2 (08:32→20:23)
[2017-05-09] MEDS: LACTOBACILLUS RHAMNOSUS CAP PO SCH ×3 (08:37→17:29)
--- NOTE | 2017-05-09 09:02 | PN ---
Date/Time of Note Date/Time of Note DATE: 05/09/17 TIME: 09:01 Assessment/Plan VTE Prophylaxis VTE Prophylaxis Intervention: SCD's Lines/Catheters IV Catheter Type (from Nrs): PICC Line Central line still needed: Yes Urinary Cath still in place: No Assessment/Plan Chief Complaint/Hosp Course acute cholecystitis with episodes of hypotension requiring pressors on iv abx Problems: Assessment/Plan slowly improving continue iv abx elective lap julissa in one month Subjective 24 Hr Interval Summary Free Text/Dictation slowly improving tolerating diet still elevated wbc Exam/Review of Systems Vital Signs Vitals Vital Signs Date Time Temp Pulse Resp B/P Pulse Ox O2 Delivery O2 Flow Rate FiO2 05/09/17 08:07 98.2 55 18 139/71 98 05/08/17 20:00 Nasal Cannula 2.0 05/08/17 19:27 21 Intake and Output 05/08/17 05/08/17 05/09/17 14:59 22:59 06:59 Intake Total 1530 ml 1370 ml Output Total 0 ml Balance 1530 ml 1370 ml Exam drain in place and appropriately working Results Result Diagram: 05/08/17 0510 05/08/17 0531 Results 24 hrs Laboratory Tests Test 05/08/17 13:57 05/08/17 14:35 05/08/17 17:04 05/08/17 20:14 Bedside Glucose 131 123 142 Creatine Kinase 27 Creatine Kinase Index 1.7 Creatinine Kinase MB (Mass) 0.46 Troponin I 0.077 Test 05/09/17 01:34 05/09/17 05:34 05/09/17 08:36 Bedside Glucose 120 108 135 Medications Medications Current Medications Ondansetron HCl (Zofran Inj) 4 mg Q6H PRN IV NAUSEA AND/OR VOMITING; Start at 06:30 Acetaminophen 650 mg 650 mg Q6H PRN PO PAIN LEVEL 1-3 OR FEVER; Start at 06:30 Piperacillin Sod/ Tazobactam Sod 50 ml @ 100 mls/hr Q6 IVPB Last administered on 05/09/17 05:37; Admin Dose 100 MLS/HR; Start 05/04/17 at 06:30 Sodium Chloride (NS) 1,000 ml @ 70 mls/hr [id number] IV Last administered on 05/09 00:22; Admin Dose 70 MLS/HR; Start 05/04/17 at 10:00 Diagnostic Test (Pha) (Accu-Chek) 1 ea 02 XX Last administered on 05/09/17 01: 37; Admin Dose 1 EA; Start 05/05/17 at 02:00 Insulin Aspart (Novolog Insulin Pen) NOVOLOG *MILD* ALGORI... Q4 SC Last administered on 05/08/17 20:31; Admin Dose 1 UNIT; Start 05/04/17 at 13:00 Miscellaneous Information 1 ea NOTE XX ; Start 05/04/17 at 10:30 Glucose (Glutose) 15 gm Q15M PRN PO DECREASED GLUCOSE; Start 05/04/17 at 10:30 Glucose (Glutose) 22.5 gm Q15M PRN PO DECREASED GLUCOSE; Start 05/04/17 at 10: 30 Dextrose (D50w Syringe) 25 ml Q15M PRN IV DECREASED GLUCOSE; Start 05/04/17 at 10:30 Dextrose (D50w Syringe) 50 ml Q15M PRN IV DECREASED GLUCOSE; Start 05/04/17 at 10:30 Glucagon (Glucagen) 1 mg Q15M PRN IM DECREASED GLUCOSE; Start 05/04/17 at 10: 30 Glucose (Glutose) 15 gm Q15M PRN BUCCAL DECREASED GLUCOSE; Start 05/04/17 at 10:30 Famotidine (Pepcid) 20 mg BID PO Last administered on 05/09/17 08:32; Admin Dose 20 MG; Start 05/07/17 at 21:00 Harvey RESTREPO May 09, 2017 09:02
--- NOTE | 2017-05-09 14:25 | CONS ---
Date/Time of Note Date/Time of Note DATE: 05/09/17 TIME: 14:21 Assessment/Plan Assessment/Plan Chief Complaint/Hosp Course SUBJECTIVE: No acute events. Patient is alert, feels better, tolerates diet. No fevers. MICROBIOLOGY: Blood culture growing Enterobacter cloacae complex and Klebsiella pneumoniae. Both susceptible to all antibiotics. ANTIMICROBIALS: The patient is on Zosyn. INDWELLINGS: The patient has, right-sided abdominal drainage catheter. PHYSICAL EXAMINATION: GENERAL: Well-developed, obese, ____ middle-aged woman who is awake, in no distress. HEENT: Atraumatic, normocephalic. Sclerae anicteric. Buccal mucosa pink. NECK: Supple. CHEST: Rise symmetrical. Breath sounds clear. HEART: S1, S2. ABDOMEN: Soft. Bowel sounds present. EXTREMITIES: Without cyanosis. ASSESSMENT: 1. Sepsis with polymicrobial bacteremia secondary to #2. 2. Acute cholecystitis, status post CT-guided cholecystostomy placement. 3. Diabetes. 4. Morbid obesity. 5. Status post septic shock. PLAN: Improving. Will change abx to Levaquin, fu labs in am. Follow surgical recommendations. DW staff Problems: Consultation Date/Type/Reason Admit Date/Time May 04, 2017 at 04:10 Initial Consult Date Type of Consultation: ID Exam/Review of Systems Vital Signs Vitals Vital Signs Date Time Temp Pulse Resp B/P Pulse Ox O2 Delivery O2 Flow Rate FiO2 05/09/17 12:00 Nasal Cannula 05/09/17 12:00 86 05/09/17 11:57 97.6 18 112/58 99 05/08/17 20:00 2.0 05/08/17 19:27 21 Intake and Output 05/08/17 05/08/17 05/09/17 15:00 23:00 07:00 Intake Total 1530 ml 1370 ml Output Total 0 ml Balance 1530 ml 1370 ml Results Result Diagram: 05/08/17 0510 05/08/17 0531 Results 24 hrs Laboratory Tests Test 05/08/17 14:35 05/08/17 17:04 05/08/17 20:14 05/09/17 01:34 Creatine Kinase 27 Creatine Kinase Index 1.7 Creatinine Kinase MB (Mass) 0.46 Troponin I 0.077 Bedside Glucose 123 142 120 Test 05/09/17 05:34 05/09/17 08:36 05/09/17 11:58 Bedside Glucose 108 135 126 Medications Medications Current Medications Ondansetron HCl (Zofran Inj) 4 mg Q6H PRN IV NAUSEA AND/OR VOMITING; Start at 06:30 Acetaminophen 650 mg 650 mg Q6H PRN PO PAIN LEVEL 1-3 OR FEVER; Start at 06:30 Piperacillin Sod/ Tazobactam Sod 50 ml @ 100 mls/hr Q6 IVPB Last administered on 05/09/17 11:59; Admin Dose 100 MLS/HR; Start 05/04/17 at 06:30 Sodium Chloride (NS) 1,000 ml @ 70 mls/hr [id number] IV Last administered on 05/09 00:22; Admin Dose 70 MLS/HR; Start 05/04/17 at 10:00 Diagnostic Test (Pha) (Accu-Chek) 1 ea 02 XX Last administered on 05/09/17 01: 37; Admin Dose 1 EA; Start 05/05/17 at 02:00 Insulin Aspart (Novolog Insulin Pen) NOVOLOG *MILD* ALGORI... Q4 SC Last administered on 05/08/17 20:31; Admin Dose 1 UNIT; Start 05/04/17 at 13:00 Miscellaneous Information 1 ea NOTE XX ; Start 05/04/17 at 10:30 Glucose (Glutose) 15 gm Q15M PRN PO DECREASED GLUCOSE; Start 05/04/17 at 10:30 Glucose (Glutose) 22.5 gm Q15M PRN PO DECREASED GLUCOSE; Start 05/04/17 at 10: 30 Dextrose (D50w Syringe) 25 ml Q15M PRN IV DECREASED GLUCOSE; Start 05/04/17 at 10:30 Dextrose (D50w Syringe) 50 ml Q15M PRN IV DECREASED GLUCOSE; Start 05/04/17 at 10:30 Glucagon (Glucagen) 1 mg Q15M PRN IM DECREASED GLUCOSE; Start 05/04/17 at 10: 30 Glucose (Glutose) 15 gm Q15M PRN BUCCAL DECREASED GLUCOSE; Start 05/04/17 at 10:30 Famotidine (Pepcid) 20 mg BID PO Last administered on 05/09/17 08:32; Admin Dose 20 MG; Start 05/07/17 at 21:00 FRANCES RASMUSSEN NP May 09, 2017 14:25
[2017-05-09] MEDS: LEVOFLOXACIN 500MG/D5W (PMX) 100 ML IVPB SCH (15:12)
--- NOTE | 2017-05-09 15:39 | PN ---
Date/Time of Note Date/Time of Note DATE: 05/09/17 TIME: 15:36 Assessment/Plan VTE Prophylaxis VTE Prophylaxis Intervention: ambulation, SCD's Lines/Catheters IV Catheter Type (from Nrsg): PICC Line Central line still needed: Yes Urinary Cath still in place: No Assessment/Plan Chief Complaint/Hosp Course s: 12.4 no acute issues, still has diarrhea o: Physical exam General: Patient is laying in bed and answers questions appropriately Mentation: Patient is alert and oriented 4, Head: Normocephalic atraumatic Eyes: EOMI, pupils reactive to light Neck: Supple, nontender, midline Respiratory: Clear to auscultation bilaterally Cardiovascular: regular rate, no obvious murmurs Gastrointestinal: non-tender to palpation, bowel sounds heard. Neurological: Moves all extremities spontaneously Skin: No new skin lesions Assessment/Plan Septic shock secondary to acute cholecystitis- resolving - Patient still has an elevated WBC but no neutrophils and bandemia improving - Lactic acid normalized following fluid resuscitation and IV antibiotics - Surgery on board and consultation appreciated. Dr. Ibrahim will proceed with elective lap julissa once acute infection resolves. Spoke with covering surgeon and agrees with current plan. Patient will need to go home with drain and follow up with surgery Bacteremia - Blood cultures growing gram negative rods - Currently levaquin - ID consultation appreciated and awaiting further input - repeat blood cultures drawn and negative Hypotension - Resolved. no longer requiring pressor support Diabetes Mellitus, well controlled - A1c 6.2 - Will continue on ISS and accuchecks - Hold home Metformin Acute cholecystitis s/p percutaneous cholecystostomy placed on 05/05 - Surgery on board - LFTs trending downward SOB - neb treatment as needed JAKY - resolved with fluid Diarrhea - will check for Cdiff - start on probiotics Disposition - continue monitoring in telemetry - Would like WBC closer to normal prior to discharge home - Advance diet to carb control -changed to levaquin -will DC with drain Problems: Exam/Review of Systems Vital Signs Vitals Vital Signs Date Time Temp Pulse Resp B/P Pulse Ox O2 Delivery O2 Flow Rate FiO2 05/09/17 14:40 56 20 99 Nasal Cannula 2.0 28 05/09/17 11:57 97.6 112/58 Intake and Output 05/08/17 05/08/17 05/09/17 15:00 23:00 07:00 Intake Total 1530 ml 1370 ml Output Total 0 ml Balance 1530 ml 1370 ml Results Result Diagram: 05/08/17 0510 05/08/17 0531 Results 24 hrs Laboratory Tests Test 05/08/17 17:04 05/08/17 20:14 05/09/17 01:34 05/09/17 05:34 Bedside Glucose 123 142 120 108 Test 05/09/17 08:36 05/09/17 11:58 Bedside Glucose 135 126 Medications Medications Current Medications Ondansetron HCl (Zofran Inj) 4 mg Q6H PRN IV NAUSEA AND/OR VOMITING; Start at 06:30 Acetaminophen 650 mg 650 mg Q6H PRN PO PAIN LEVEL 1-3 OR FEVER; Start at 06:30 Sodium Chloride (NS) 1,000 ml @ 70 mls/hr [id number] IV Last administered on 05/09 15:12; Admin Dose 70 MLS/HR; Start 05/04/17 at 10:00 Diagnostic Test (Pha) (Accu-Chek) 1 ea 02 XX Last administered on 05/09/17 01: 37; Admin Dose 1 EA; Start 05/05/17 at 02:00 Insulin Aspart (Novolog Insulin Pen) NOVOLOG *MILD* ALGORI... Q4 SC Last administered on 05/08/17 20:31; Admin Dose 1 UNIT; Start 05/04/17 at 13:00 Miscellaneous Information 1 ea NOTE XX ; Start 05/04/17 at 10:30 Glucose (Glutose) 15 gm Q15M PRN PO DECREASED GLUCOSE; Start 05/04/17 at 10:30 Glucose (Glutose) 22.5 gm Q15M PRN PO DECREASED GLUCOSE; Start 05/04/17 at 10: 30 Dextrose (D50w Syringe) 25 ml Q15M PRN IV DECREASED GLUCOSE; Start 05/04/17 at 10:30 Dextrose (D50w Syringe) 50 ml Q15M PRN IV DECREASED GLUCOSE; Start 05/04/17 at 10:30 Glucagon (Glucagen) 1 mg Q15M PRN IM DECREASED GLUCOSE; Start 05/04/17 at 10: 30 Glucose (Glutose) 15 gm Q15M PRN BUCCAL DECREASED GLUCOSE; Start 05/04/17 at 10:30 Famotidine 20 mg 20 mg BID PO Last administered on 05/09/17 08:32; Admin Dose 20 MG; Start 05/07/17 at 21:00 Levofloxacin/ Dextrose (Levaquin 500mg/ D5W 100 ml (Pmx)) 100 ml @ 100 mls/hr Q24H IVPB Last administered on 05/09/17 15:12; Admin Dose 100 MLS/HR; Start 05/09/17 at 14:30 BRAD VILLAVICENCIO May 09, 2017 15:39
[2017-05-10] VITALS (12 sets, daily range): BP systolic 109–149; BP diastolic 58–81; PULSE 60–116; RESP 16–20
[2017-05-10] MEDS: INSULIN ASPART [NOVOLOG] 3 ML PEN SC SCH ×6 (01:00→21:00)
[2017-05-10] MEDS: ACCU-CHEK XX SCH (02:00)
[2017-05-10] MEDS: SOD CHLORIDE 0.9% 1,000 ML IV SCH ×2 (05:07→19:34)
[2017-05-10] MEDS: ALBUTEROL/IPRATROPIUM (NEB) 3 ML AMP HHN SCH ×3 (08:05→19:23)
[2017-05-10 08:34] LABS: ABNORMAL IP MESSAGE 1; HEMATOCRIT 32.3 % (37.0-47.0); HEMOGLOBIN 10.9 g/dl (12.0-16.0); MEAN CORPUSCULAR HEMOGLOBIN 29.3 pg (29.0-33.0); MEAN CORPUSCULAR HGB CONC 33.7 g/dl (32.0-37.0); MEAN CORPUSCULAR VOLUME 86.8 fl (82.0-101.0); MEAN PLATELET VOLUME 10.7 fl (7.4-10.4); NUCLEATED RED BLOOD CELLS% 0.1 /100WBC (0.0-0.0); PLATELET COUNT 302 10^3/UL (140-415); RED BLOOD COUNT 3.72 10^6/ul (4.20-5.40); RED CELL DISTRIBUTION WIDTH 13.4 % (11.5-14.5); WHITE BLOOD COUNT 14.6 10^3/ul (4.8-10.8)
[2017-05-10 08:39] LABS: POSITIVE DIFF @See below
[2017-05-10 08:46] LABS: CALCIUM 7.9 mg/dl (8.4-10.2); CREATININE 0.61 mg/dl (0.44-1.00); MAGNESIUM 1.5 mg/dl (1.7-2.5); PHOSPHORUS 3.7 mg/dl (2.5-4.9); POTASSIUM 3.4 mmol/L (3.5-5.1)
[2017-05-10] MEDS: LACTOBACILLUS RHAMNOSUS CAP PO SCH ×3 (09:11→17:19)
[2017-05-10] MEDS: FAMOTIDINE 20 MG TAB PO SCH ×2 (09:11→21:04)
[2017-05-10 09:47] LABS: BASOPHILS % (M) 1 % (0-2); EOSINOPHILS % (M) 5 % (0-7); ERYTHROBLAST% (NRBC) (M) 1 % (0-0); GIANT THROMBO% (M) 2 % (0-0); MONOCYTES % (M) 3 % (0-11); MYELOCYTES % (M) 3 % (0-0); PLASMA CELLS #M 0.2 10^3/ul (0.0-0.0); PLASMAC%(M) 2 % (0); PLATELET ESTIMATE NORMAL; POLYCHROMASIA 3+ (0-0)
[2017-05-10] MEDS ORDERED: MAGNESIUM SULFATE 2 GM/50 ML 50 ML IVPB ONE (10:00)
[2017-05-10] MEDS ORDERED: POTASSIUM CHLORIDE 20 MEQ POWDER FOR ORAL SOLN PO ONE (10:00)
--- NOTE | 2017-05-10 13:15 | CONS ---
Date/Time of Note Date/Time of Note DATE: 05/10/17 TIME: 13:14 Assessment/Plan Assessment/Plan Chief Complaint/Hosp Course SUBJECTIVE: No acute events. Patient is alert, feels much better, tolerates diet. No fevers. MICROBIOLOGY: Blood culture growing Enterobacter cloacae complex and Klebsiella pneumoniae. Both susceptible to all antibiotics. ANTIMICROBIALS: Levaquin. INDWELLINGS: The patient has, right-sided abdominal drainage catheter. PHYSICAL EXAMINATION: GENERAL: Well-developed, obese, ____ middle-aged woman who is awake, in no distress. HEENT: Atraumatic, normocephalic. Sclerae anicteric. Buccal mucosa pink. NECK: Supple. CHEST: Rise symmetrical. Breath sounds clear. HEART: S1, S2. ABDOMEN: Soft. Bowel sounds present. EXTREMITIES: Without cyanosis. ASSESSMENT: 1. Sepsis with polymicrobial bacteremia secondary to #2. 2. Acute cholecystitis, status post CT-guided cholecystostomy placement. 3. Diabetes. 4. Morbid obesity. 5. Status post septic shock. PLAN: Continues to improve, anticipate dc on PO Levaquin for 2 weeks. Follow surgical recommendations. DW staff Problems: Consultation Date/Type/Reason Admit Date/Time May 04, 2017 at 04:10 Type of Consultation: ID Exam/Review of Systems Vital Signs Vitals Vital Signs Date Time Temp Pulse Resp B/P Pulse Ox O2 Delivery O2 Flow Rate FiO2 05/10/17 12:21 99.0 92 20 135/76 98 05/10/17 08:15 Nasal Cannula 05/10/17 08:05 21 05/09/17 14:40 2.0 Intake and Output 05/09/17 05/09/17 05/10/17 14:59 22:59 06:59 Intake Total 50 ml 2000 ml 600 ml Output Total 0 ml 0 ml Balance 50 ml 2000 ml 600 ml Results Result Diagram: 05/10/17 0812 05/10/17 0812 Results 24 hrs Laboratory Tests Test 05/09/17 17:26 05/09/17 20:19 05/10/17 05:06 05/10/17 08:12 Bedside Glucose 109 108 107 White Blood Count 14.6 #H Red Blood Count 3.72 L Hemoglobin 10.9 L Hematocrit 32.3 L Mean Corpuscular Volume 86.8 Mean Corpuscular Hemoglobin 29.3 Mean Corpuscular Hemoglobin Concent 33.7 Red Cell Distribution Width 13.4 Platelet Count 302 # Mean Platelet Volume 10.7 H Neutrophils % Segmented Neutrophils % (Manual) 64 Band Neutrophils % (Manual) 7 H Lymphocytes % Lymphocytes % (Manual) 15 Monocytes % Monocytes % (Manual) 3 Eosinophils % Eosinophils % (Manual) 5 Basophils % Basophils % (Manual) 1 Myelocytes % (Manual) 3 H Plasma Cells % (manual) 2 Nucleated Red Blood Cells % 1 H Neutrophils # Neutrophils # (Manual) 9.5 H Band Neutrophils # 1.0 H Absolute Lymphocytes (Manual) 2.1 Lymphocytes # Monocytes # Absolute Monocytes (Manual) 0.4 Eosinophils # Basophils # Basophils # (Manual) 0.1 H Myelocytes # 0.4 H Plasma Cells # (manual) 0.2 H Nucleated Red Blood Cells # Platelet Estimate NORMAL Giant Platelets 2 H Polychromasia 3+ Sodium Level 140 Potassium Level 3.4 L Chloride Level 103 Carbon Dioxide Level 29 Anion Gap 11 Blood Urea Nitrogen 6 L Creatinine 0.61 Glucose Level 114 Calcium Level 7.9 L Phosphorus Level 3.7 Magnesium Level 1.5 L Test 05/10/17 09:09 05/10/17 12:54 Bedside Glucose 98 158 Medications Medications Current Medications Ondansetron HCl (Zofran Inj) 4 mg Q6H PRN IV NAUSEA AND/OR VOMITING; Start at 06:30 Acetaminophen 650 mg 650 mg Q6H PRN PO PAIN LEVEL 1-3 OR FEVER; Start at 06:30 Sodium Chloride (NS) 1,000 ml @ 70 mls/hr [id number] IV Last administered on 05/10 05:07; Admin Dose 70 MLS/HR; Start 05/04/17 at 10:00 Diagnostic Test (Pha) (Accu-Chek) 1 ea 02 XX Last administered on 05/09/17 01: 37; Admin Dose 1 EA; Start 05/05/17 at 02:00 Insulin Aspart (Novolog Insulin Pen) NOVOLOG *MILD* ALGORI... Q4 SC Last administered on 05/10/17 13:00; Admin Dose 1 UNIT; Start 05/04/17 at 13:00 Miscellaneous Information 1 ea NOTE XX ; Start 05/04/17 at 10:30 Glucose (Glutose) 15 gm Q15M PRN PO DECREASED GLUCOSE; Start 05/04/17 at 10:30 Glucose (Glutose) 22.5 gm Q15M PRN PO DECREASED GLUCOSE; Start 05/04/17 at 10: 30 Dextrose (D50w Syringe) 25 ml Q15M PRN IV DECREASED GLUCOSE; Start 05/04/17 at 10:30 Dextrose (D50w Syringe) 50 ml Q15M PRN IV DECREASED GLUCOSE; Start 05/04/17 at 10:30 Glucagon (Glucagen) 1 mg Q15M PRN IM DECREASED GLUCOSE; Start 05/04/17 at 10: 30 Glucose (Glutose) 15 gm Q15M PRN BUCCAL DECREASED GLUCOSE; Start 05/04/17 at 10:30 Famotidine 20 mg 20 mg BID PO Last administered on 05/10/17 09:11; Admin Dose 20 MG; Start 05/07/17 at 21:00 Levofloxacin/ Dextrose (Levaquin 500mg/ D5W 100 ml (Pmx)) 100 ml @ 100 mls/hr Q24H IVPB Last administered on 05/09/17 15:12; Admin Dose 100 MLS/HR; Start 05/09/17 at 14:30 FRANCES RASMUSSEN NP May 10, 2017 13:15
[2017-05-10] MEDS: LEVOFLOXACIN 500MG/D5W (PMX) 100 ML IVPB SCH (15:17)
--- NOTE | 2017-05-10 15:49 | PN ---
Date/Time of Note Date/Time of Note DATE: 05/10/17 TIME: 15:48 Assessment/Plan VTE Prophylaxis VTE Prophylaxis Intervention: SCD's Lines/Catheters [facility] PICC Line Central line still needed: Yes Urinary Cath still in place: No Assessment/Plan Chief Complaint/Hosp Course s: 12.4 no acute issues, still has diarrhea 12.5 no diarrhea, no c dif, doing well o: Physical exam General: Patient is laying in bed and answers questions appropriately Mentation: Patient is alert and oriented 4, Head: Normocephalic atraumatic Eyes: EOMI, pupils reactive to light Neck: Supple, nontender, midline Respiratory: Clear to auscultation bilaterally Cardiovascular: regular rate, no obvious murmurs Gastrointestinal: non-tender to palpation, bowel sounds heard. Neurological: Moves all extremities spontaneously Skin: No new skin lesions Assessment/Plan Septic shock secondary to acute cholecystitis- resolving - Patient still has an elevated WBC but no neutrophils and bandemia improving - Lactic acid normalized following fluid resuscitation and abx - Surgery on board and consultation appreciated. Dr. Ibrahim will proceed with elective lap julissa once acute infection resolves. Spoke with covering surgeon and agrees with current plan. Patient will need to go home with drain and follow up with surgery Bacteremia - Blood cultures growing gram negative rods - Currently levaquin - ID consultation appreciated and awaiting further input - repeat blood cultures drawn and negative Hypotension - Resolved. no longer requiring pressor support Diabetes Mellitus, well controlled - A1c 6.2 - Will continue on ISS and accuchecks - Hold home Metformin Acute cholecystitis s/p percutaneous cholecystostomy placed on 05/05 - Surgery on board - LFTs trending downward SOB - neb treatment as needed JAKY - resolved with fluid Diarrhea - will check for Cdiff - start on probiotics Disposition - continue monitoring in telemetry - Would like WBC closer to normal prior to discharge home - Advance diet to carb control -changed to levaquin, if tolerating PO, can DC tomorrow -will DC with drain Problems: Exam/Review of Systems Vital Signs Vitals Vital Signs Date Time Temp Pulse Resp B/P Pulse Ox O2 Delivery O2 Flow Rate FiO2 05/10/17 13:50 72 20 95 21 05/10/17 12:21 99.0 135/76 05/10/17 08:15 Nasal Cannula 05/09/17 14:40 2.0 Intake and Output 05/09/17 05/09/17 05/10/17 15:00 23:00 07:00 Intake Total 50 ml 2000 ml 600 ml Output Total 0 ml 0 ml Balance 50 ml 2000 ml 600 ml Results Result Diagram: 05/10/17 0812 05/10/17 0812 Results 24 hrs Laboratory Tests Test 05/09/17 17:26 05/09/17 20:19 05/10/17 05:06 05/10/17 08:12 Bedside Glucose 109 108 107 White Blood Count 14.6 #H Red Blood Count 3.72 L Hemoglobin 10.9 L Hematocrit 32.3 L Mean Corpuscular Volume 86.8 Mean Corpuscular Hemoglobin 29.3 Mean Corpuscular Hemoglobin Concent 33.7 Red Cell Distribution Width 13.4 Platelet Count 302 # Mean Platelet Volume 10.7 H Neutrophils % Segmented Neutrophils % (Manual) 64 Band Neutrophils % (Manual) 7 H Lymphocytes % Lymphocytes % (Manual) 15 Monocytes % Monocytes % (Manual) 3 Eosinophils % Eosinophils % (Manual) 5 Basophils % Basophils % (Manual) 1 Myelocytes % (Manual) 3 H Plasma Cells % (manual) 2 Nucleated Red Blood Cells % 1 H Neutrophils # Neutrophils # (Manual) 9.5 H Band Neutrophils # 1.0 H Absolute Lymphocytes (Manual) 2.1 Lymphocytes # Monocytes # Absolute Monocytes (Manual) 0.4 Eosinophils # Basophils # Basophils # (Manual) 0.1 H Myelocytes # 0.4 H Plasma Cells # (manual) 0.2 H Nucleated Red Blood Cells # Platelet Estimate NORMAL Giant Platelets 2 H Polychromasia 3+ Sodium Level 140 Potassium Level 3.4 L Chloride Level 103 Carbon Dioxide Level 29 Anion Gap 11 Blood Urea Nitrogen 6 L Creatinine 0.61 Glucose Level 114 Calcium Level 7.9 L Phosphorus Level 3.7 Magnesium Level 1.5 L Test 05/10/17 09:09 05/10/17 12:54 Bedside Glucose 98 158 Medications Medications Current Medications Ondansetron HCl (Zofran Inj) 4 mg Q6H PRN IV NAUSEA AND/OR VOMITING; Start at 06:30 Acetaminophen 650 mg 650 mg Q6H PRN PO PAIN LEVEL 1-3 OR FEVER; Start at 06:30 Sodium Chloride (NS) 1,000 ml @ 70 mls/hr [id number] IV Last administered on 05/10 05:07; Admin Dose 70 MLS/HR; Start 05/04/17 at 10:00 Diagnostic Test (Pha) (Accu-Chek) 1 ea 02 XX Last administered on 05/09/17 01: 37; Admin Dose 1 EA; Start 05/05/17 at 02:00 Insulin Aspart (Novolog Insulin Pen) NOVOLOG *MILD* ALGORI... Q4 SC Last administered on 05/10/17 13:00; Admin Dose 1 UNIT; Start 05/04/17 at 13:00 Miscellaneous Information 1 ea NOTE XX ; Start 05/04/17 at 10:30 Glucose (Glutose) 15 gm Q15M PRN PO DECREASED GLUCOSE; Start 05/04/17 at 10:30 Glucose (Glutose) 22.5 gm Q15M PRN PO DECREASED GLUCOSE; Start 05/04/17 at 10: 30 Dextrose (D50w Syringe) 25 ml Q15M PRN IV DECREASED GLUCOSE; Start 05/04/17 at 10:30 Dextrose (D50w Syringe) 50 ml Q15M PRN IV DECREASED GLUCOSE; Start 05/04/17 at 10:30 Glucagon (Glucagen) 1 mg Q15M PRN IM DECREASED GLUCOSE; Start 05/04/17 at 10: 30 Glucose (Glutose) 15 gm Q15M PRN BUCCAL DECREASED GLUCOSE; Start 05/04/17 at 10:30 Famotidine 20 mg 20 mg BID PO Last administered on 05/10/17 09:11; Admin Dose 20 MG; Start 05/07/17 at 21:00 Levofloxacin/ Dextrose (Levaquin 500mg/ D5W 100 ml (Pmx)) 100 ml @ 100 mls/hr Q24H IVPB Last administered on 05/10/17 15:17; Admin Dose 100 MLS/HR; Start 05/09/17 at 14:30 RBAD VILLAVICENCIO May 10, 2017 15:49
[2017-05-11] VITALS (8 sets, daily range): BP systolic 118–142; BP diastolic 57–77; PULSE 61–82; RESP 16–18
[2017-05-11] MEDS: INSULIN ASPART [NOVOLOG] 3 ML PEN SC SCH ×4 (01:00→13:00)
[2017-05-11] MEDS: ACCU-CHEK XX SCH (02:00)
[2017-05-11] MEDS: SOD CHLORIDE 0.9% 1,000 ML IV SCH (05:54)
[2017-05-11] MEDS: ALBUTEROL/IPRATROPIUM (NEB) 3 ML AMP HHN SCH ×2 (08:03→14:11)
[2017-05-11] MEDS: FAMOTIDINE 20 MG TAB PO SCH (08:29)
[2017-05-11] MEDS: LACTOBACILLUS RHAMNOSUS CAP PO SCH ×2 (08:29→12:00)
[2017-05-11 09:17] LABS: ABNORMAL IP MESSAGE 1; HEMATOCRIT 33.2 % (37.0-47.0); MEAN CORPUSCULAR HEMOGLOBIN 29.1 pg (29.0-33.0); MEAN CORPUSCULAR HGB CONC 33.1 g/dl (32.0-37.0); MEAN CORPUSCULAR VOLUME 87.8 fl (82.0-101.0); MEAN PLATELET VOLUME 10.6 fl (7.4-10.4); PLATELET COUNT 292 10^3/UL (140-415); RED BLOOD COUNT 3.78 10^6/ul (4.20-5.40); RED CELL DISTRIBUTION WIDTH 13.6 % (11.5-14.5); WHITE BLOOD COUNT 12.5 10^3/ul (4.8-10.8)
[2017-05-11 09:18] LABS: POSITIVE DIFF @See below
[2017-05-11 09:49] LABS: CALCIUM 8.4 mg/dl (8.4-10.2); CREATININE 0.63 mg/dl (0.44-1.00); MAGNESIUM 1.9 mg/dl (1.7-2.5); PHOSPHORUS 3.4 mg/dl (2.5-4.9); POTASSIUM 3.7 mmol/L (3.5-5.1)
[2017-05-11 10:47] LABS: ANISOCYTOSIS 1+ (0-0); EOSINOPHILS % (M) 1 % (0-7); METAMYELOCYTES %M 3 % (0-0); MONOCYTES % (M) 3 % (0-11); MYELOCYTES % (M) 2 % (0-0); PLATELET ESTIMATE NORMAL; POLYCHROMASIA 2+ (0-0); TARGET CELLS 1+ (0-0)
[2017-05-11] MEDS ORDERED: LEVO500T10 PO (12:44)
--- NOTE | 2017-05-11 12:46 | PDOCDIS ---
Discharge Instructions CONDITION Patient Condition: Stable HOME CARE INSTRUCTIONS: Diet Instructions: RegularSpecial Diet: carb control ACTIVITY: Activity Restrictions: Slowly Increase Activity FOLLOW UP/APPOINTMENTS Follow-up Plan 1. Take antibiotics as directed 2. Continue all other home medications 3. Follow up with Dr. Aramis Ibrahim, general surgery, for follow up for drain removal and elective cholecystectomy 4. Home health to help with wound care BRAD VILLAVICENCIO May 11, 2017 12:46
--- NOTE | 2017-05-11 12:59 | CONS ---
Date/Time of Note Date/Time of Note DATE: 05/11/17 TIME: 12:57 Assessment/Plan Assessment/Plan Chief Complaint/Hosp Course SUBJECTIVE: No acute events. Patient is alert, feels much better, no fevers. MICROBIOLOGY: Blood culture grew Enterobacter cloacae complex and Klebsiella pneumoniae. Both susceptible to all antibiotics. ANTIMICROBIALS: Levaquin. INDWELLINGS: The patient has, right-sided abdominal drainage catheter. PHYSICAL EXAMINATION: GENERAL: Well-developed, obese, ____ middle-aged woman who is awake, in no distress. HEENT: Atraumatic, normocephalic. Sclerae anicteric. Buccal mucosa pink. NECK: Supple. CHEST: Rise symmetrical. Breath sounds clear. HEART: S1, S2. ABDOMEN: Soft. Bowel sounds present. EXTREMITIES: Without cyanosis. ASSESSMENT: 1. S/p sepsis with polymicrobial bacteremia secondary to #2. 2. Acute cholecystitis, status post CT-guided cholecystostomy placement. 3. Diabetes. 4. Morbid obesity. 5. Status post septic shock. PLAN: Continues to improve, ok dc on PO Levaquin, follow with surgery outpatient. DW staff Problems: Consultation Date/Type/Reason Admit Date/Time May 04, 2017 at 04:10 Type of Consultation: ID Exam/Review of Systems Vital Signs Vitals Vital Signs Date Time Temp Pulse Resp B/P Pulse Ox O2 Delivery O2 Flow Rate FiO2 05/11/17 12:23 82 05/11/17 12:02 97.7 16 118/57 99 05/11/17 08:15 Nasal Cannula 2.0 05/11/17 08:05 21 Intake and Output 05/10/17 05/10/17 05/11/17 14:59 22:59 06:59 Intake Total 500 ml Output Total 0 ml Balance 0 ml 500 ml Results Result Diagram: 05/11/17 0844 05/11/17 0844 Results 24 hrs Laboratory Tests Test 05/10/17 17:18 05/10/17 20:18 05/11/17 05:22 05/11/17 08:29 Bedside Glucose 130 109 124 93 Test 05/11/17 08:44 White Blood Count 12.5 H Red Blood Count 3.78 L Hemoglobin 11.0 L Hematocrit 33.2 L Mean Corpuscular Volume 87.8 Mean Corpuscular Hemoglobin 29.1 Mean Corpuscular Hemoglobin Concent 33.1 Red Cell Distribution Width 13.6 Platelet Count 292 Mean Platelet Volume 10.6 H Neutrophils % Segmented Neutrophils % (Manual) 67 Band Neutrophils % (Manual) 2 Lymphocytes % Lymphocytes % (Manual) 22 Monocytes % Monocytes % (Manual) 3 Eosinophils % Eosinophils % (Manual) 1 Basophils % Metamyelocytes % (manual) 3 H Myelocytes % (Manual) 2 H Nucleated Red Blood Cells % 0.0 Neutrophils # Neutrophils # (Manual) 8.4 H Band Neutrophils # 0.2 Absolute Lymphocytes (Manual) 2.7 Lymphocytes # Monocytes # Absolute Monocytes (Manual) 0.3 Eosinophils # Basophils # Metamyelocytes # 0.3 H Myelocytes # 0.2 H Nucleated Red Blood Cells # Platelet Estimate NORMAL Polychromasia 2+ Anisocytosis 1+ Target Cells 1+ Sodium Level 141 Potassium Level 3.7 Chloride Level 103 Carbon Dioxide Level 30 Anion Gap 12 Blood Urea Nitrogen 7 Creatinine 0.63 Glucose Level 114 Calcium Level 8.4 Phosphorus Level 3.4 Magnesium Level 1.9 Medications Medications Current Medications Ondansetron HCl (Zofran Inj) 4 mg Q6H PRN IV NAUSEA AND/OR VOMITING; Start at 06:30 Acetaminophen 650 mg 650 mg Q6H PRN PO PAIN LEVEL 1-3 OR FEVER; Start at 06:30 Sodium Chloride (NS) 1,000 ml @ 70 mls/hr [id number] IV Last administered on 05/11 05:54; Admin Dose 70 MLS/HR; Start 05/04/17 at 10:00 Diagnostic Test (Pha) (Accu-Chek) 1 ea 02 XX Last administered on 05/09/17 01: 37; Admin Dose 1 EA; Start 05/05/17 at 02:00 Insulin Aspart (Novolog Insulin Pen) NOVOLOG *MILD* ALGORI... Q4 SC Last administered on 05/10/17 13:00; Admin Dose 1 UNIT; Start 05/04/17 at 13:00 Miscellaneous Information 1 ea NOTE XX ; Start 05/04/17 at 10:30 Glucose (Glutose) 15 gm Q15M PRN PO DECREASED GLUCOSE; Start 05/04/17 at 10:30 Glucose (Glutose) 22.5 gm Q15M PRN PO DECREASED GLUCOSE; Start 05/04/17 at 10: 30 Dextrose (D50w Syringe) 25 ml Q15M PRN IV DECREASED GLUCOSE; Start 05/04/17 at 10:30 Dextrose (D50w Syringe) 50 ml Q15M PRN IV DECREASED GLUCOSE; Start 05/04/17 at 10:30 Glucagon (Glucagen) 1 mg Q15M PRN IM DECREASED GLUCOSE; Start 05/04/17 at 10: 30 Glucose (Glutose) 15 gm Q15M PRN BUCCAL DECREASED GLUCOSE; Start 05/04/17 at 10:30 Famotidine 20 mg 20 mg BID PO Last administered on 05/11/17 08:29; Admin Dose 20 MG; Start 05/07/17 at 21:00 Levofloxacin/ Dextrose (Levaquin 500mg/ D5W 100 ml (Pmx)) 100 ml @ 100 mls/hr Q24H IVPB Last administered on 05/10/17 15:17; Admin Dose 100 MLS/HR; Start 05/09/17 at 14:30 FRANCES RASMUSSEN NP May 11, 2017 12:59
[2017-05-11] MEDS ORDERED: LEVOFLOXACIN 500 MG TAB PO SCH (14:00)
--- NOTE | 2017-05-11 15:10 | DS ---
Date/Time of Note Date/Time of Note DATE: 05/11/17 TIME: 15:10 Discharge Summary Admission/Discharge Info Admit Date/Time May 04, 2017 at 04:10 Discharge Date/Time Patient Condition: Stable Hospital Course Patient is a 57-year-old female who presented to [facility] for acute cholecystitis. Patient also suffers from from septic shock due to acute cholecystitis and general surgery saw the patient and perform cholecystostomy with drainage. Infectious disease was involved case as well. Patient was monitored in the inpatient setting on IV antibiotics and cholecystostomy drain and patient was stabilized on IV antibiotics and fluids and will be sent home with cholecystostomy drain intact with home health to complete course of IV antibiotics and to make an appointment with general surgery within 2 weeks for drain removal as well as scheduling outpatient elective cholecystectomy. Patient understands instructions clearly. Discharge diagnosis Septic shock secondary to acute cholecystitis Cholecystitis, status post cholecystostomy drain placement Bacteremia, on antibiotics Hypotension Diabetes mellitus Shortness of breath HPI Diarrhea Home Meds Active Scripts Levofloxacin* (Levofloxacin*) 500 Mg Tablet, 500 MG PO DAILY for 14 Days, #14 TAB Prov:BRAD VILLAVICENCIO 05/11/17 Reported Medications Albuterol Sulfate (Proair Respiclick) 90 Mcg Aer.pow.ba, 2 PUFFS INHALATION Q6, #1 BOTTLE 05/03/17 Metoprolol Succinate* (Toprol XL*) 25 Mg Tab.sr.24h, 25 MG PO DAILY, #30 TAB 05/03/17 Losartan Potassium* (Losartan Potassium*) 50 Mg Tablet, 50 MG PO DAILY, TAB 05/03/17 Metformin Hcl* (Metformin Hcl*) 500 Mg Tablet, 500 MG PO WITH BREAKFAST, #30 TAB 05/03/17 Atorvastatin Calcium (Atorvastatin Calcium) 10 Mg Tablet, 10 MG PO QHS, #30 TAB 05/03/17 Follow-up Plan 1. Take antibiotics as directed 2. Continue all other home medications 3. Follow up with Dr. Aramis Ibrahim, general surgery, for follow up for drain removal and elective cholecystectomy 4. Home health to help with wound care Primary Care Provider Jonathan Burton MD Time spent on discharge: > 30 minutes Pending Labs Laboratory Tests Test 05/10/17 17:18 05/10/17 20:18 05/11/17 05:22 05/11/17 08:29 Bedside Glucose 130mg/dL (70-220) 109mg/dL (70-220) 124mg/dL (70-220) 93mg/dL (70-220) Test 05/11/17 08:44 White Blood Count 12.510^3/ul (4.8-10.8) Red Blood Count 3.7810^6/ul (4.20-5.40) Hemoglobin 11.0g/dl (12.0-16.0) Hematocrit 33.2% (37.0-47.0) Mean Corpuscular Volume 87.8fl (82.0-101.0) Mean Corpuscular Hemoglobin 29.1pg (29.0-33.0) Mean Corpuscular Hemoglobin Concent 33.1g/dl (32.0-37.0) Red Cell Distribution Width 13.6% (11.5-14.5) Platelet Count 62358^3/UL (140-415) Mean Platelet Volume 10.6fl (7.4-10.4) Neutrophils % % (39.0-77.0) Segmented Neutrophils % (Manual) 67% (39-77) Band Neutrophils % (Manual) 2% (0-4) Lymphocytes % % (15.0-51.0) Lymphocytes % (Manual) 22% (15-51) Monocytes % % (0.0-11.0) Monocytes % (Manual) 3% (0-11) Eosinophils % % (0.0-7.0) Eosinophils % (Manual) 1% (0-7) Basophils % % (0.0-2.0) Metamyelocytes % (manual) 3% (0-0) Myelocytes % (Manual) 2% (0-0) Nucleated Red Blood Cells % 0.0/100WBC (0.0-0.0) Neutrophils # 10^3/ul (1.6-7.5) Neutrophils # (Manual) 8.410^3/ul (1.7-7.5) Band Neutrophils # 0.210^3/ul (0.0-0.6) Absolute Lymphocytes (Manual) 2.710^3/ul (0.8-2.9) Lymphocytes # 10^3/ul (0.8-2.9) Monocytes # 10^3/ul (0.3-0.9) Absolute Monocytes (Manual) 0.310^3/ul (0.3-0.9) Eosinophils # 10^3/ul (0.0-0.5) Basophils # 10^3/ul (0.0-0.1) Metamyelocytes # 0.310^3/ul (0.0-0.0) Myelocytes # 0.210^3/ul (0.0-0.0) Nucleated Red Blood Cells # 10^3/ul (0.0-0.0) Platelet Estimate NORMAL Polychromasia 2+ (0-0) Anisocytosis 1+ (0-0) Target Cells 1+ (0-0) Sodium Level 141mmol/L (135-144) Potassium Level 3.7mmol/L (3.5-5.1) Chloride Level 103mmol/L (97-110) Carbon Dioxide Level 30mmol/L (21-31) Anion Gap 12 (8-16) Blood Urea Nitrogen 7mg/dl (7-20) Creatinine 0.63mg/dl (0.44-1.00) Glucose Level 114mg/dl (70-220) Calcium Level 8.4mg/dl (8.4-10.2) Phosphorus Level 3.4mg/dl (2.5-4.9) Magnesium Level 1.9mg/dl (1.7-2.5) BRAD VILLAVICENCIO May 11, 2017 15:10
== END 2017-05-11 15:30 | disposition home health service (06) | DRG 871 ==
LOC: E/R 21:56 → ICU 05-04 04:10 → MS4 05-05 18:40
PROVIDERS: ADMIT Family Medicine; ATTEND Family Medicine
PROC: 02H633Z Insertion of Infusion Device into Right Atrium, Percutaneous Approach (ICD-10-PCS; 2017-05-04)
PROC: 0F9430Z Drainage of Gallbladder with Drainage Device, Percutaneous Approach (ICD-10-PCS; principal; 2017-05-05)
DX: A41.50 Gram-negative sepsis, unspecified (principal); R65.21 Severe sepsis with septic shock; N17.9 Acute kidney failure, unspecified; K80.00 Calculus of gallbladder with acute cholecystitis without obstruction; E11.9 Type 2 diabetes mellitus without complications; I10 Essential (primary) hypertension; K76.0 Fatty (change of) liver, not elsewhere classified; E78.5 Hyperlipidemia, unspecified; J45.909 Unspecified asthma, uncomplicated; E66.9 Obesity, unspecified; Z68.32 Body mass index [BMI] 32.0-32.9, adult; R19.7 Diarrhea, unspecified
CPT/HCPCS: 36415; 36569; 71010; 74176; 76705; 76937; 77012; 80048; 80053; 80061; 80076; 81001; 82550; 82553; 82962; 83036; 83605; 83690; 83735; 84100; 84484; 85025; 85610; 85730; 87040; 87075; 87081; 87086; 93005; 94640; 94664; 96374; 96375; 97162; C9113; J0171; J0692; J1100; J1200; J1815; J1940; J1956; J2250; J2270; J2370; J2405; J2543; J3010; J3370; J3475; J7030; J7060

== ENCOUNTER 2017-06-13 10:14 | Emergency (ER) | END 2017-06-13 15:54 | disposition home or self-care (01) ==

== ENCOUNTER 2017-06-24 11:51 | Day surgery (SDC) | END 2017-06-24 17:13 | disposition home or self-care (01) ==